=== PATIENT | female | born 1955 | race Caucasian/White ===

== ENCOUNTER 2017-01-05 17:52 | Emergency (ER) | payer MEDICARE, OTHER ==
[2017-01-05 18:47] VITALS: BP 126/64; PULSE 100; TEMP 97.9; BMI 27.4
--- NOTE | 2017-01-05 18:57 | PDOC ---
History of Present Illness - General Chief Complaint: Injury Stated Complaint: LEFT ARM PAIN Time Seen by Provider: 01/05/17 18:54 History Source: Patient Exam Limitations: No Limitations - History of Present Illness Initial Comments: CHIEF COMPLAINT: 61 y/o afebrile female with PMH DM c/o left shoulder and arm pain x 22 days. HISTORY OF PRESENT ILLNESS: The patient states she fell onto her left side 22 days ago while in the [place]. She came home, iced it, took Motrin and hoped it would get better. She states it was very swollen and painful but started to get better so she decided not to get checked out. She states both her left shoulder and left wrist started hurting again a few days ago. She denies numbness/tingling in affected extremity, f/c, redness and streaking to affected extremity. Vital signs on arrival are within normal limits. REVIEW OF SYSTEMS: GENERAL/CONSTITUTIONAL: No fever/chills. No weakness. No weight change. MUSCULOSKELETAL: +left shoulder and wrist pain. No neck or back pain. SKIN: No rash or easy bruising. NEUROLOGIC: No headache, vertigo, loss of consciousness, or loss of sensation. PHYSICAL EXAM: VITAL_SIGNS: within normal limits GENERAL_APPEARANCE: alert, cooperative, no obvious discomfort. MENTAL_STATUS: speech clear, oriented X 3, responds appropriately to questions. NEURO: motor intact and sensory intact in injured extremity. EXTREMITIES: Pain with palpation of left AC joint and left wrist at snuffbox. Mild swelling to left wrist joint. No left clavicular deformities, crepitus or tenting. Patient has difficulty abducting left arm > 90 degrees. 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 No erythema, warmth or streaking to affected extremity. SKIN: warm, dry, good color. Past History - Past Medical History Allergies/Adverse Reactions: Allergies Allergy/AdvReac Type Severity Reaction Status Date / Time canagliflozin [From Invokana] Allergy Severe Swelling Verified 01/05/17 18:44 Home Medications: Ambulatory Orders Glimepiride [Amaryl -] 1 mg PO DAILY 01/05/17 Metformin HCl [Metformin HCl ER] 1,000 mg PO ASDIR 01/05/17 Other medical history: denies - Immunization History Immunization Up to Date: Yes - Psycho/Social/Smoking Cessation Hx Suicidal Ideation: No Smoking History: Current every day smoker Number of Cigarettes Smoked Daily: 20 Information on smoking cessation initiated: No Hx Alcohol Use: No Drug/Substance Use Hx: No *Physical Exam - Vital Signs Last Vital Signs Temp Pulse Resp BP Pulse Ox 97.9 F 100 H 18 126/64 100 01/05/17 18:44 01/05/17 18:44 01/05/17 18:44 01/05/17 18:44 01/05/17 18:44 Medical Decision Making - Medical Decision Making A/P: 61 y/o female with 3 weeks of left shoulder and wrist pain s/p fall. Plan is as follows: 1. Left shoulder xray 2. Left wrist xray 3. Sling Left shoulder xray IMPRESSION: (wet read) No acute fracture Left wrist xray IMPRESSION: (wet read) Non displaced, already healing fracture of left distal radius. Will give wrist splint and sling. Informed the patient the wrist already started healing so she should f/u with Ortho as soon as possible. Suggested she continue motrin for pain, follow RICE instructions and call Dr. Young on Sunday. Pt instructed to return to the ER with any worsening or concerning symptoms. The patient verbalizes understanding of all instructions, has no further questions and is awaiting discharge. *DC/Admit/Observation/Transfer Diagnosis at time of Disposition: Rotator cuff injury Qualifiers: Encounter type: initial encounter Laterality: left Qualified Code(s): S46.002A - Unspecified injury of muscle(s) and tendon(s) of the rotator cuff of left shoulder, initial encounter Distal radius fracture, left Qualifiers: Encounter type: initial encounter Fracture type: closed Fracture morphology: unspecified fracture morphology Qualified Code(s): S52.502A - Unspecified fracture of the lower end of left radius, initial encounter for closed fracture - Discharge Dispostion Disposition: HOME Condition at time of disposition: Good - Referrals Referrals: Pramod Young MD [Staff Physician] - (Call on Sunday ) - Patient Instructions Printed Discharge Instructions: How to Use a Sling, How To Perform RICE (Rest, Ice, Compress, Elevate), DI for Rotator Cuff Injury, DI for Distal Radius Fracture Additional Instructions: Discharge Instructions: -Use sling for comfort -Follow RICE instructions and continue taking Motrin for pain -Use wrist splint for comfort -Call Dr. Young on Sunday to schedule follow up appointment -Return to the ER with any worsening or concerning symptoms.
[2017-01-05] MEDS ORDERED: IBUPROFEN 600 MG TABLET (FP) PO ONE ×2 (19:53→19:55)
== END 2017-01-05 19:59 | disposition home or self-care (01) ==
LOC: JERFT 17:52
PROC: 2W3DX1Z Immobilization of Left Lower Arm using Splint (ICD-10-PCS; principal; 2017-01-05)
DX: S52.502A Unspecified fracture of the lower end of left radius, initial encounter for closed fracture (principal); S46.002A Unspecified injury of muscle(s) and tendon(s) of the rotator cuff of left shoulder, initial encounter; W19.XXXA Unspecified fall, initial encounter; Y93.89 Activity, other specified; Y92.89 Other specified places as the place of occurrence of the external cause; E11.9 Type 2 diabetes mellitus without complications; Z79.84 Long term (current) use of oral hypoglycemic drugs
CPT/HCPCS: 29125; 73030-TC-LT; 73110-TC-LT; 73130-TC-LT; 99281-25

== ENCOUNTER 2018-05-20 09:09 | Inpatient (IN) | payer MEDICARE, OTHER ==
--- NOTE | 2018-05-20 09:28 | PDOC ---
Attending Attestation - Resident Resident Name: [email or web address] - ED Attending Attestation I have performed the following: I have examined & evaluated the patient, The case was reviewed & discussed with the resident, I agree w/resident's findings & plan, Exceptions are as noted - HPI HPI: 05/20/18 09:37 62y F hx of COPD,DM, presents with sob. Patient endorses 2 days of diarrhea that has since resolved she endorses nasal congestion and cough productive of whitish sputum over the past 4 days she endorses mild dyspnea on exertion without associated fevers, chest pain, hemoptysis, leg swelling, back pain. Patient endorses some mild epigastric pain and nausea without any vomiting. No associated orthopnea. +sick contacts +chronic smoking PMD:Dr. Lr - Physicial Exam PE: 05/20/18 10:29 GENERAL: The patient is awake, alert, and fully oriented, Nontoxic - in no acute distress. HEAD: Normocephalic, atraumatic. EYES: extraocular movements intact, sclera anicteric, conjunctiva clear. ENT: Normal voice, Moist mucous membranes. NECK: Normal range of motion, supple, no jvd LUNGS: diffuse wheezing bilaterally, no respiratory distress, speaking complete sentences HEART: Regular rate and rhythm, normal S1 and S2 without murmur, rub or gallop. ABDOMEN: Soft, nontender, normoactive bowel sounds. No guarding, no rebound. . No CVA tenderness EXTREMITIES: Normal range of motion, trace edema. NEUROLOGICAL: No facial assymetry, Normal speech, PSYCH: Normal mood, normal affect. SKIN: Warm, Dry, normal turgor, - Medical Decision Making 05/20/18 10:30 Suspect COPD exacerbation, consider PE however patient has no other risk factors she also has diffusely wheezy lung Will treat the patient with steroids, DuoNeb times we'll obtain chest x-ray to rule out pneumonia Oxygenation is noted to be 91-92% on room air - clear what her baseline is will check with her PMD Will reassess 05/20/18 12:07 The patient's blood work was reviewed the patient is persistent tachycardic and hypoxic consider possible PE 05/20/18 15:07 cta neg for pe will admti for further management of copd Heart Score/ECG Review - ECG Impressions Comment:: 05/20/18 12:07 Twelve-lead EKG was performed and reviewed by me. There is normal sinus rhythm with a normal rate. rate of [address] changes suggestive of acute ischemia
[2018-05-20] MEDS ORDERED: ALBUTEROL SO4 2.5/IPRATROPIUM 0.5 INH SOL 3 ML VIAL.NEB. NEB ONE ×5 (09:36→11:53)
[2018-05-20] MEDS ORDERED: FAMOTIDINE 20 MG/50 ML IVPB 20 MG/50 ML MG IVPB ONE ×2 (09:39→10:01)
[2018-05-20] MEDS ORDERED: predniSONE 20 MG TABLET (UD) PO ONE (09:39)
--- NOTE | 2018-05-20 09:49 | PDOC ---
History of Present Illness - General Chief Complaint: Weakness Stated Complaint: Weakness Time Seen by Provider: 05/20/18 09:21 History Source: Patient Exam Limitations: No Limitations - History of Present Illness Initial Comments: 05/20/18 09:43 Patient is 62F with history of DM and COPD here today complaining of 5 days of URI symptoms. Patient endorses three days of diarrhea during initial aspect of illness, but that resolved. Patient endorses cough, chills, nausea, gagging. Patient endorses shortness of breath, worse with exertion. Denies chest pain. Denies leg swelling, prior blood clots. Patient is active smoker. Patient has + sick contact two days before illness. Past History - Past Medical History Allergies/Adverse Reactions: Allergies Allergy/AdvReac Type Severity Reaction Status Date / Time canagliflozin [From Invokana] Allergy Severe Swelling Verified 05/20/18 09:22 Home Medications: Ambulatory Orders Glimepiride [Amaryl -] 1 mg PO DAILY 01/05/17 Metformin HCl [Metformin HCl ER] 1,000 mg PO ASDIR 01/05/17 COPD: Yes Diabetes: Yes - Immunization History Immunization Up to Date: Yes - Suicide/Smoking/Psychosocial Hx Smoking History: Current every day smoker Number of Cigarettes Smoked Daily: 10 Information on smoking cessation initiated: No Hx Alcohol Use: No Drug/Substance Use Hx: No Review of Systems - Review of Systems Comments:: 05/20/18 09:54 GENERAL/CONSTITUTIONAL: No fever +chills. No weakness. HEAD, EYES, EARS, NOSE AND THROAT: No change in vision. No ear pain or discharge. No sore throat. CARDIOVASCULAR: No chest pain +shortness of breath RESPIRATORY:+cough, +wheezing, no hemoptysis. GASTROINTESTINAL: +nausea, no vomiting, +diarrhea GENITOURINARY: No dysuria, frequency, or change in urination. MUSCULOSKELETAL: +b/l shoulder pain, chronic. No neck or back pain. SKIN: No rash NEUROLOGIC: No headache, vertigo, loss of consciousness, or change in strength/ sensation. ENDOCRINE: No increased thirst. No abnormal weight change HEMATOLOGIC/LYMPHATIC: No anemia, easy bleeding, or history of blood clots. ALLERGIC/IMMUNOLOGIC: No hives or skin allergy. *Physical Exam - Vital Signs Last Vital Signs Temp Pulse Resp BP Pulse Ox 97.7 F 100 H 20 131/67 91 L 05/20/18 09:14 05/20/18 09:14 05/20/18 09:14 05/20/18 09:14 05/20/18 09:14 - Physical Exam Comments: 05/20/18 09:55 GENERAL: Awake, alert, and fully oriented, in no acute distress HEAD: No signs of trauma, normocephalic, atraumatic EYES: PERRLA, EOMI, sclera anicteric, conjunctiva clear ENT: Auricles normal inspection, hearing grossly normal, nares patent, oropharynx clear without exudates. Moist mucosa NECK: Normal ROM, supple, no lymphadenopathy, JVD, or masses LUNGS: No distress, speaks full sentences, expiratory wheezes in all lung ortiz HEART: Regular rate and rhythm, normal S1 and S2, no murmurs, rubs or gallops, peripheral pulses normal and equal bilaterally. ABDOMEN: Soft, nontender, normoactive bowel sounds. No guarding, no rebound. No masses EXTREMITIES: Normal inspection, Normal range of motion, no edema. No clubbing or cyanosis. NEUROLOGICAL: Cranial nerves II through XII grossly intact. Normal speech, normal gait, no focal sensorimotor deficits SKIN: Warm, Dry, normal turgor, no rashes or lesions noted. Moderate Sedation - Procedure Monitoring Vital Signs: Procedure Monitoring Vital Signs Temperature 97.7 F 05/20/18 09:14 Pulse Rate 100 H 05/20/18 09:14 Respiratory Rate 20 05/20/18 09:14 Blood Pressure 131/67 05/20/18 09:14 O2 Sat by Pulse Oximetry (%) 91 L 05/20/18 09:14 ED Treatment Course - LABORATORY CBC & Chemistry Diagram: 05/20/18 09:55 05/20/18 09:55 - RADIOLOGY Radiology Studies Ordered: Category Date Time Status CHEST PA & LAT [RAD] Stat Radiology 05/20/18 09:34 Ordered Medical Decision Making - Medical Decision Making 05/20/18 09:55 Patient is 62F here today with shortness of breath. Vitals notable for HR of 100 , spO2 of 91% on room air. Unknown baseline. DDx includes, but is not limited to : COPD exacerbation, viral uri, pneumonia, acs. Will evaluate with cardiac labs , ekg, cxr. Will treat with pepcid, duonebs, prednisone. PE considered, do not believe likely given history and PE. 05/20/18 10:48 EKG shows normal sinus rhythm with rate of 95. No st elevations/depressions. Normal axis. Normal intervals. No significant t wave abnormalities. CBC normal. CMP normal. Mg slightly low. Patient still wheezing after nebs, sp02 improved to 94%. Still reporting shortness of breath. 05/20/18 12:57 Patient reassessed, tachycardic to 110s, hypoxic to 89%. Believe COPD is most likely, but tachycardia is not sufficiently explained at this time. Will do chest cta to rule out pe and pneumonia. Given tylenol for possible fever. Will admit if workup negative for copd exacerbation and hypoxia. 05/20/18 14:37 Patient has remained hypoxic despite steroids, mag and duonebs. Will admit for copd exacerbation. CTA negative. 05/20/18 15:17 D/w Dr Lr. Accepted admission to med/surg. *DC/Admit/Observation/Transfer Diagnosis at time of Disposition: COPD exacerbation - Discharge Dispostion Disposition: HOME Condition at time of disposition: Good Decision to Admit order: Yes - Referrals Referrals: Jen Lr MD [Primary Care Provider] - - Patient Instructions - Post Discharge Activity
[2018-05-20] MEDS ORDERED: predniSONE 20 MG TABLET (UD) ONE ×2 (10:01→10:02)
[2018-05-20 10:04] LABS: VENOUS PC02 46.6 mmHg (38-52); VENOUS PH 7.42 (7.32-7.42); VENOUS PO2 35.8 mmHg (28-48)
[2018-05-20 10:05] LABS: EOS % 0.2 % (0-4.5); HEMATOCRIT 45.2 % (32.4-45.2); HEMOGLOBIN 14.6 GM/dL (10.7-15.3); LYMPH % 41.6 % (8-40); MCH 28.4 pg (25.7-33.7); MCHC 32.3 g/dl (32.0-36.0); MEAN PLT VOLUME 7.1 fl (7.5-11.1); MONO % 11.5 % (3.8-10.2); NEUT % 45.7 % (42.8-82.8); PLATELET COUNT 246 K/MM3 (134-434); RBC 5.13 M/mm3 (3.60-5.2); RDW 13.5 % (11.6-15.6); WHITE BLOOD COUNT 6.8 K/mm3 (4.0-10.0)
[2018-05-20 10:16] LABS: INR 1.1 (0.83-1.09)
[2018-05-20 10:45] LABS: ALBUMIN 3.4 g/dl (3.4-5.0); ALK PHOS 130 U/L (45-117); ANION GAP 9 MMOL/L (8-16); BILIRUBIN,TOTAL 0.5 mg/dL (0.2-1); BLOOD UREA NITROGEN 10 mg/dL (7-18); CALCIUM 8.7 mg/dL (8.5-10.1); CHLORIDE 100 mmol/L (98-107); CO2 27 mmol/L (21-32); CREATININE 0.5 mg/dL (0.55-1.3); GLUCOSE,RANDOM 178 mg/dL (74-106); MAGNESIUM 1.4 mg/dL (1.8-2.4); POTASSIUM 3.9 mmol/L (3.5-5.1); SGOT/AST 24 U/L (15-37); SGPT/ALT 38 U/L (13-61); SODIUM 135 mmol/L (136-145); TOT PROT 7.3 g/dl (6.4-8.2)
[2018-05-20] MEDS ORDERED: SODIUM CHLORIDE 1,000 ML IV STA (11:49)
[2018-05-20] MEDS ORDERED: ACETAMINOPHEN 325 MG TABLET (FP) PO ONE (11:50)
[2018-05-20] MEDS ORDERED: ACETAMINOPHEN 325 MG TABLET (FP) ONE (11:53)
[2018-05-20] MEDS ORDERED: MAGNESIUM 1GM/D5W - 1 GM/100 ML IVPB IVPB ONE (11:54)
--- NOTE | 2018-05-20 12:16 | EKG ---
Test Reason : Blood Pressure : / mmHG Vent. Rate : 095 BPM Atrial Rate : 095 BPM P-R Int : 164 ms QRS Dur : 072 ms QT Int : 366 ms P-R-T Axes : 071 075 041 degrees QTc Int : 459 ms NORMAL SINUS RHYTHM RIGHT ATRIAL ENLARGEMENT BORDERLINE ECG WHEN COMPARED WITH ECG OF 23-JUN-2004 18:14, NO SIGNIFICANT CHANGE WAS FOUND Confirmed by FAISAL HENDRIX MD ([id number]) on 05/20/2018 12:16:15 PM Referred By: Confirmed By:FAISAL HENDRIX MD
[2018-05-20] MEDS ORDERED: ALBUTEROL SO4 2.5/IPRATROPIUM 0.5 INH SOL 3 ML VIAL.NEB. NEB PRN (18:12)
[2018-05-20] MEDS ORDERED: ACETAMINOPHEN 500 MG TABLET (FP) PO PRN (18:19)
[2018-05-20 18:42] VITALS: BMI 27.8
[2018-05-20] MEDS: DEXTROSE 5%-0.45% SALINE 1,000 ML IV SCH (19:01)
[2018-05-20] MEDS: BUDESONIDE/FORMETEROL FUMARATE 80/4.5 mcg INHALER IH SCH (19:01)
[2018-05-20] MEDS: PANTOPRAZOLE 40 MG TABLET (FP) PO SCH (19:01)
[2018-05-20] MEDS: ALBUTEROL SO4 2.5/IPRATROPIUM 0.5 INH SOL 3 ML VIAL.NEB. NEB SCH (20:19)
[2018-05-20] MEDS ORDERED: PT OWN MED DRAWER 7, Y5N ONE (22:28)
[2018-05-20] MEDS: ATORVASTATIN CA 40 MG TABLET (FP) PO SCH (22:31)
[2018-05-20] MEDS: MAGNESIUM OXIDE 400 MG TABLET (FP) PO SCH (22:31)
[2018-05-20] MEDS: methylPREDNISolone NA SUCC 40 MG/1 ML VIAL IVPUSH SCH (22:32)
[2018-05-20] MEDS: DOCUSATE SODIUM 100 MG CAPSULE (FP) PO SCH (22:32)
[2018-05-20] MEDS: INSULIN SLIDING SCALE (NOVOLOG) 1 VIAL SQ SCH (22:44)
[2018-05-21] MEDS: methylPREDNISolone NA SUCC 40 MG/1 ML VIAL IVPUSH SCH ×4 (02:22→21:43)
[2018-05-21] MEDS: INSULIN SLIDING SCALE (NOVOLOG) 1 VIAL SQ SCH ×4 (06:24→21:57)
[2018-05-21] MEDS: ALBUTEROL SO4 2.5/IPRATROPIUM 0.5 INH SOL 3 ML VIAL.NEB. NEB SCH ×4 (07:25→20:10)
[2018-05-21 08:20] LABS: HEMATOCRIT 43.9 % (32.4-45.2); MCH 28.6 pg (25.7-33.7); MCHC 31.9 g/dl (32.0-36.0); MEAN CELL VOLUME 89.4 fl (80-96); MEAN PLT VOLUME 7.5 fl (7.5-11.1); PLATELET COUNT 255 K/MM3 (134-434); RDW 13.4 % (11.6-15.6); WHITE BLOOD COUNT 5.3 K/mm3 (4.0-10.0)
[2018-05-21 09:11] LABS: ANION GAP 9 MMOL/L (8-16); BLOOD UREA NITROGEN 17 mg/dL (7-18); CALCIUM 8.8 mg/dL (8.5-10.1); CHLORIDE 102 mmol/L (98-107); CHOLESTEROL 138 mg/dL (50-200); CO2 25 mmol/L (21-32); CREATININE 0.6 mg/dL (0.55-1.3); HDL CHOLESTEROL 46 mg/dL (40-60); MAGNESIUM 2.4 mg/dL (1.8-2.4); SODIUM 136 mmol/L (136-145); TRIGLYCERIDES 45 mg/dL (0-150)
[2018-05-21 09:14] LABS: GLUCOSE,RANDOM 308 mg/dL (74-106)
[2018-05-21] MEDS: PANTOPRAZOLE 40 MG TABLET (FP) PO SCH (09:54)
[2018-05-21] MEDS: LISINOPRIL 5 MG TABLET (FP) PO SCH (09:54)
[2018-05-21] MEDS: MAGNESIUM OXIDE 400 MG TABLET (FP) PO SCH ×2 (09:54→21:44)
[2018-05-21] MEDS: DOCUSATE SODIUM 100 MG CAPSULE (FP) PO SCH ×2 (09:54→21:43)
[2018-05-21] MEDS: BUDESONIDE/FORMETEROL FUMARATE 80/4.5 mcg INHALER IH SCH ×2 (09:58→21:44)
--- NOTE | 2018-05-21 17:00 | HP ---
Admitting History and Physical - Past Medical History ...: No - Smoking History Smoking history: Current every day smoker Have you smoked in the past 12 months: Yes Aproximately how many cigarettes per day: 10 - Alcohol/Substance Use Hx Alcohol Use: No <ZacDiana - Last Filed: 05/21/18 17:00> - Admission Chief Complaint: cant breath History of Present Illness: Patient is 62F with history of DM and COPD here today complaining of 5 days of URI symptoms. Patient endorses three days of diarrhea during initial aspect of illness, but that resolved. Patient endorses cough, chills, nausea, gagging. Patient endorses shortness of breath, worse with exertion. Denies chest pain. Denies leg swelling, prior blood clots. Patient is active smoker. Patient has + sick contact two days before illness. History Source: Patient, Medical Record Limitations to Obtaining History: No Limitations - Past Medical History Pulmonary: Yes: COPD, Other (current smoker) Reproductive: Yes: Postmenopausal Endocrine: Yes: Diabetes Mellitus (12 yrs) - Smoking History Smoking history: Current every day smoker Have you smoked in the past 12 months: Yes - Alcohol/Substance Use Hx Alcohol Use: No History of Substance Use: reports: None - Social History Usual Living Arrangement: Yes: Alone ADL: Independent History of Recent Travel: No <Jen Lr I - Last Filed: 05/22/18 13:09> Home Medications <Diana Frank - Last Filed: 05/21/18 17:00> <Jen Lr I - Last Filed: 05/22/18 13:09> - Allergies Allergies/Adverse Reactions: Allergies Allergy/AdvReac Type Severity Reaction Status Date / Time canagliflozin [From Invokana] Allergy Severe Swelling Verified 05/20/18 09:22 - Home Medications Home Medications: Ambulatory Orders Glimepiride [Amaryl -] 1 mg PO DAILY 01/05/17 Metformin HCl [Metformin HCl ER] 1,000 mg PO ASDIR 01/05/17 Review of Systems - Review of Systems Constitutional: denies: Chills, Fever, Night Sweats Eyes: reports: No Symptoms HENT: reports: No Symptoms Neck: reports: No Symptoms Cardiovascular: reports: Shortness of Breath Respiratory: reports: Cough, Exercise Intolerance, Orthopnea, SOB, SOB on Exertion Gastrointestinal: reports: No Symptoms Genitourinary: reports: No Symptoms Breasts: reports: No Symptoms Reported Musculoskeletal: reports: No Symptoms Integumentary: reports: No Symptoms Neurological: reports: No Symptoms Endocrine: reports: Increased Thirst Hematology/Lymphatic: reports: No Symptoms Psychiatric: reports: No Symptoms <Jen Lr I - Last Filed: 05/22/18 13:09> Physical Examination Vital Signs: Vital Signs Temperature 98.2 F 05/21/18 13:58 Pulse Rate 86 05/21/18 13:58 Respiratory Rate 18 05/21/18 13:58 Blood Pressure 114/74 05/21/18 13:58 O2 Sat by Pulse Oximetry (%) 96 05/21/18 09:00 Labs: CBC, ANNE-MARIE 05/21/18 06:23 05/21/18 06:23 <Diana Frank - Last Filed: 05/21/18 17:00> Vital Signs: Vital Signs Temperature 98.1 F 05/22/18 10:00 Pulse Rate 91 H 05/22/18 10:00 Respiratory Rate 18 05/22/18 10:00 Blood Pressure 134/76 05/22/18 10:00 O2 Sat by Pulse Oximetry (%) 96 05/21/18 21:00 Constitutional: Yes: Well Nourished, No Distress, Calm Eyes: Yes: Conjunctiva Clear, EOM Intact HENT: Yes: Atraumatic, Normocephalic Neck: Yes: Supple, Trachea Midline Cardiovascular: Yes: Regular Rate and Rhythm Respiratory: Yes: Diminished, Poor Air Entry, SOB, SOB on Exertion Gastrointestinal: Yes: Normal Bowel Sounds, Soft ...Rectal Exam: Yes: Deferred Renal/: Yes: WNL Breast(s): Yes: WNL Musculoskeletal: Yes: WNL Extremities: Yes: WNL Edema: No Peripheral Pulses WNL: Yes Integumentary: Yes: WNL Neurological: Yes: Alert, Oriented ...Motor Strength: WNL Psychiatric: Yes: Alert, Oriented Labs: CBC, BMP 05/21/18 06:23 05/21/18 06:23 <Jen Lr I - Last Filed: 05/22/18 13:09> Problem List - Problems (1) COPD exacerbation Code(s): J44.1 - CHRONIC OBSTRUCTIVE PULMONARY DISEASE W (ACUTE) EXACERBATION (2) Diabetes mellitus Code(s): E11.9 - TYPE 2 DIABETES MELLITUS WITHOUT COMPLICATIONS <Jen Lr I - Last Filed: 05/22/18 13:09>
[2018-05-21] MEDS: POLYETHYLENE GLYCOL 3350 119 GM BTL PO SCH (17:24)
[2018-05-21] MEDS: DEXTROSE 5%-0.45% SALINE 1,000 ML IV SCH (17:25)
[2018-05-21] MEDS: ATORVASTATIN CA 40 MG TABLET (FP) PO SCH (21:44)
[2018-05-22] MEDS: methylPREDNISolone NA SUCC 40 MG/1 ML VIAL IVPUSH SCH ×4 (02:52→22:07)
[2018-05-22] MEDS: INSULIN SLIDING SCALE (NOVOLOG) 1 VIAL SQ SCH ×4 (06:12→22:07)
[2018-05-22] MEDS: ALBUTEROL SO4 2.5/IPRATROPIUM 0.5 INH SOL 3 ML VIAL.NEB. NEB SCH ×4 (07:35→20:28)
[2018-05-22] MEDS: LISINOPRIL 5 MG TABLET (FP) PO SCH (10:00)
[2018-05-22] MEDS: BUDESONIDE/FORMETEROL FUMARATE 80/4.5 mcg INHALER IH SCH ×2 (10:00→22:09)
[2018-05-22] MEDS: DOCUSATE SODIUM 100 MG CAPSULE (FP) PO SCH ×2 (10:00→22:07)
[2018-05-22] MEDS: MAGNESIUM OXIDE 400 MG TABLET (FP) PO SCH ×2 (10:00→22:07)
[2018-05-22] MEDS: POLYETHYLENE GLYCOL 3350 119 GM BTL PO SCH (10:00)
[2018-05-22] MEDS: PANTOPRAZOLE 40 MG TABLET (FP) PO SCH (10:00)
[2018-05-22] MEDS ORDERED: sitaGLIPtin PHOSPHATE 100 MG TABLET (FP) PO SCH (12:55)
--- NOTE | 2018-05-22 13:03 | PN ---
Progress Note (short form) - Note Progress Note: seen and examined in room ambulating remains dyspneic admits current smoker -- I have not smoked in 4 days Vital Signs Period Temp Pulse Resp BP Sys/Soriano Pulse Ox Last 24 Hr 98 F-98.7 F 86-98 17-24 114-142/57-76 96 neck supple heart s1/s2 lungs decreased BS throughout / coarse wheezing bilat / coughing when taking deep breaths abd soft no tender CBC, BMP 05/21/18 06:23 05/21/18 06:23 discussed diet adherance for DM extensively BS all remain elevated monitor reviewed avg BS as out patient 200's Active Medications Acetaminophen (Tylenol -) 500 mg PO Q6H PRN PRN Reason: PAIN LEVEL 1-5 Albuterol/Ipratropium (Duoneb -) 1 amp NEB RQID [facility] Last Admin: 05/22/18 12:39 Dose: 1 amp Albuterol/Ipratropium (Duoneb -) 1 amp NEB Q4H PRN PRN Reason: SHORTNESS OF BREATH Atorvastatin Calcium (Lipitor -) 40 mg PO HS [facility] Last Admin: 05/21/18 21:44 Dose: 40 mg Budesonide/Formoterol Fumarate (Symbicort 80/4.5mcg -) 2 puff IH BID [facility] Last Admin: 05/22/18 10:00 Dose: 2 puff Docusate Sodium (Colace -) 200 mg PO BID [facility] Last Admin: 05/22/18 10:00 Dose: 200 mg Insulin Aspart (Novolog Vial Sliding Scale -) 1 vial SQ ACHS [facility]; Protocol Last Admin: 05/22/18 12:10 Dose: 12 unit Lisinopril (Prinivil) 5 mg PO DAILY [facility] Last Admin: 05/22/18 10:00 Dose: 5 mg Magnesium Oxide (Mag-Ox -) 400 mg PO BID [facility] Last Admin: 05/22/18 10:00 Dose: 400 mg Metformin HCl (Glucophage -) 1,000 mg PO BID@0700,1630 [facility] Methylprednisolone Sodium Succinate (Solu-Medrol -) 60 mg IVPUSH Q6H-IV [facility] Last Admin: 05/22/18 09:59 Dose: 60 mg Nicotine (Nicoderm Patch -) 21 mg TD DAILY [facility] Pantoprazole Sodium (Protonix -) 40 mg PO DAILY [facility] Last Admin: 05/22/18 10:00 Dose: 40 mg Polyethylene Glycol (Miralax (For Daily Use) -) 17 gm PO DAILY [facility] Last Admin: 05/22/18 10:00 Dose: 17 gm Sitagliptin Phosphate (Januvia -) 100 mg PO DAILY@0700 [facility] # COPD exacebation D/C smoking Inh steroids / LABA / rescue inhaler IV steroids PPI -- will not taper steroids at this point #DM A1c >10 - uncontrolled (diabetic for 12 yrs) resume metformin add Januvia continue Insulin diet education statins / ACEi / asa
[2018-05-22] MEDS ORDERED: PT OWN MED DRAWER 7, Y5N ONE (14:24)
[2018-05-22] MEDS: NICOTINE 21 MG/24 HOURS TOPICAL PATCH TD SCH (14:34)
[2018-05-22] MEDS: metFORMIN HCL 500 MG TABLET (FP) PO SCH (17:29)
[2018-05-22] MEDS: ATORVASTATIN CA 40 MG TABLET (FP) PO SCH (22:07)
[2018-05-23] MEDS: methylPREDNISolone NA SUCC 40 MG/1 ML VIAL IVPUSH SCH ×4 (02:01→21:35)
[2018-05-23] MEDS: metFORMIN HCL 500 MG TABLET (FP) PO SCH ×2 (06:03→17:49)
[2018-05-23] MEDS: sitaGLIPtin PHOSPHATE 50 MG TABLET PO SCH (06:03)
[2018-05-23] MEDS: INSULIN SLIDING SCALE (NOVOLOG) 1 VIAL SQ SCH ×4 (06:03→21:36)
[2018-05-23] MEDS ORDERED: PT OWN MED DRAWER 7, Y5N ONE ×2 (06:46→11:05)
[2018-05-23] MEDS: ALBUTEROL SO4 2.5/IPRATROPIUM 0.5 INH SOL 3 ML VIAL.NEB. NEB SCH ×4 (07:15→20:03)
--- NOTE | 2018-05-23 09:27 | PN ---
Progress Note (short form) - Note Progress Note: 62 y/o female found sitting in bed. States that breathing is good. Reports abdominal bloating and no BM since Sunday. Denies coughing. Vital Signs Period Temp Pulse Resp BP Sys/Soriano Pulse Ox Last 24 Hr 97.6 F-98.2 F 87-105 18-20 120-181/60-78 96 CBC, BMP 05/21/18 06:23 05/21/18 06:23 HEENT- Normocephalic Neck- supple Lungs- CTAB Heart- S1/S2 Abd- Distended, NT Ext- No LE edema Active Medications Acetaminophen (Tylenol -) 500 mg PO Q6H PRN PRN Reason: PAIN LEVEL 1-5 Albuterol/Ipratropium (Duoneb -) 1 amp NEB RQID [facility] Last Admin: 05/22/18 20:28 Dose: 1 amp Albuterol/Ipratropium (Duoneb -) 1 amp NEB Q4H PRN PRN Reason: SHORTNESS OF BREATH Atorvastatin Calcium (Lipitor -) 40 mg PO HS [facility] Last Admin: 05/22/18 22:07 Dose: 40 mg Budesonide/Formoterol Fumarate (Symbicort 80/4.5mcg -) 2 puff IH BID [facility] Last Admin: 05/22/18 22:09 Dose: 2 puff Docusate Sodium (Colace -) 200 mg PO BID [facility] Last Admin: 05/22/18 22:07 Dose: 200 mg Insulin Aspart (Novolog Vial Sliding Scale -) [address] [facility]; Protocol Last Admin: 05/23/18 06:03 Dose: 8 unit Lisinopril (Prinivil) 5 mg PO DAILY [facility] Last Admin: 05/22/18 10:00 Dose: 5 mg Magnesium Citrate (Citroma -) 300 ml PO ONCE ONE Stop: 05/23/18 09:21 Magnesium Oxide (Mag-Ox -) 400 mg PO BID [facility] Last Admin: 05/22/18 22:07 Dose: 400 mg Metformin HCl (Glucophage -) 1,000 mg PO BID@0700,1630 [facility] Last Admin: 05/23/18 06:03 Dose: 1,000 mg Methylprednisolone Sodium Succinate (Solu-Medrol -) 60 mg IVPUSH Q6H-IV [facility] Last Admin: 05/23/18 02:01 Dose: 60 mg Nicotine (Nicoderm Patch -) 21 mg TD DAILY [facility] Last Admin: 05/22/18 14:34 Dose: 21 mg Pantoprazole Sodium (Protonix -) 40 mg PO DAILY [facility] Last Admin: 05/22/18 10:00 Dose: 40 mg Polyethylene Glycol (Miralax (For Daily Use) -) 17 gm PO DAILY [facility] Last Admin: 05/22/18 10:00 Dose: 17 gm Sitagliptin Phosphate (Januvia -) 100 mg PO DAILY@0700 [facility] Last Admin: 05/23/18 06:03 Dose: 100 mg # Constipation Citroma ordered Continue Colace and Miralax # COPD exacerbation Continue Nicotine Patch Smoking cessation discussed Inh steroids / IV steroids LABA / rescue inhaler #DM A1c >10 - uncontrolled (diabetic for 12 yrs) Metformin BID Cont Januvia Continue Novolog sliding scale Encourage diet compliance statins / DURGA / asa Problem List - Problems (1) COPD exacerbation Code(s): J44.1 - CHRONIC OBSTRUCTIVE PULMONARY DISEASE W (ACUTE) EXACERBATION (2) Diabetes mellitus Code(s): E11.9 - TYPE 2 DIABETES MELLITUS WITHOUT COMPLICATIONS
[2018-05-23] MEDS ORDERED: MAGNESIUM CITRATE 300 ML BOTTLE PO ONE (09:45)
[2018-05-23] MEDS: PANTOPRAZOLE 40 MG TABLET (FP) PO SCH (09:50)
[2018-05-23] MEDS: MAGNESIUM OXIDE 400 MG TABLET (FP) PO SCH ×2 (09:50→21:35)
[2018-05-23] MEDS: LISINOPRIL 5 MG TABLET (FP) PO SCH (09:50)
[2018-05-23] MEDS: ASPIRIN COATED 81 MG TABLET.EC PO SCH (09:50)
[2018-05-23] MEDS: DOCUSATE SODIUM 100 MG CAPSULE (FP) PO SCH ×2 (09:50→21:35)
[2018-05-23] MEDS: NICOTINE 21 MG/24 HOURS TOPICAL PATCH TD SCH (09:58)
[2018-05-23] MEDS: BUDESONIDE/FORMETEROL FUMARATE 80/4.5 mcg INHALER IH SCH ×2 (09:59→21:37)
[2018-05-23] MEDS: POLYETHYLENE GLYCOL 3350 119 GM BTL PO SCH (09:59)
[2018-05-23] MEDS: ATORVASTATIN CA 40 MG TABLET (FP) PO SCH (21:36)
[2018-05-24] MEDS: methylPREDNISolone NA SUCC 40 MG/1 ML VIAL IVPUSH SCH ×5 (01:58→21:09)
[2018-05-24] MEDS: INSULIN SLIDING SCALE (NOVOLOG) 1 VIAL SQ SCH ×4 (06:34→21:07)
[2018-05-24] MEDS: sitaGLIPtin PHOSPHATE 50 MG TABLET PO SCH (06:34)
[2018-05-24] MEDS: metFORMIN HCL 500 MG TABLET (FP) PO SCH ×2 (06:34→17:19)
[2018-05-24] MEDS: ALBUTEROL SO4 2.5/IPRATROPIUM 0.5 INH SOL 3 ML VIAL.NEB. NEB SCH ×4 (07:18→20:35)
[2018-05-24 08:18] LABS: BASO % 0.1 % (0-2.0); HEMOGLOBIN 13.7 GM/dL (10.7-15.3); MCH 28.4 pg (25.7-33.7); MCHC 31.9 g/dl (32.0-36.0); MEAN CELL VOLUME 89.2 fl (80-96); MEAN PLT VOLUME 7.6 fl (7.5-11.1); MONO % 4.7 % (3.8-10.2); NEUT % 81.2 % (42.8-82.8); PLATELET COUNT 353 K/MM3 (134-434); RBC 4.82 M/mm3 (3.60-5.2); RDW 13.2 % (11.6-15.6); WHITE BLOOD COUNT 10.5 K/mm3 (4.0-10.0)
[2018-05-24] MEDS ORDERED: PT OWN MED DRAWER 7, Y5N ONE ×4 (08:47→20:35)
[2018-05-24 09:05] LABS: ANION GAP 9 MMOL/L (8-16); BLOOD UREA NITROGEN 31 mg/dL (7-18); CHLORIDE 97 mmol/L (98-107); CO2 27 mmol/L (21-32); CREATININE 0.9 mg/dL (0.55-1.3); POTASSIUM 4.6 mmol/L (3.5-5.1); SODIUM 134 mmol/L (136-145)
[2018-05-24 10:06] LABS: GLUCOSE,RANDOM 399 mg/dL (74-106)
--- NOTE | 2018-05-24 10:11 | PN ---
Progress Note (short form) - Note Progress Note: 62 y/o female found lying in bed. Reports that she feels better due to BMs yesterday. Reports cough this am. Denies pain and SOB. Vital Signs Period Temp Pulse Resp BP Sys/Soriano Pulse Ox Last 24 Hr 97.5 F-98.4 F 92-106 20-20 123-137/62-78 98 CBC, BMP 05/24/18 07:30 05/24/18 07:30 HEENT- Normocephalic Neck- Supple Lungs- CTAB Heart- S1/S2 Abd- Soft, nt Ext- No LE edema Active Medications Acetaminophen (Tylenol -) 500 mg PO Q6H PRN PRN Reason: PAIN LEVEL 1-5 Albuterol/Ipratropium (Duoneb -) 1 amp NEB RQID [facility] Last Admin: 05/24/18 07:18 Dose: 1 amp Albuterol/Ipratropium (Duoneb -) 1 amp NEB Q4H PRN PRN Reason: SHORTNESS OF BREATH Aspirin (Ecotrin -) 81 mg PO DAILY [facility] Last Admin: 05/23/18 09:50 Dose: 81 mg Atorvastatin Calcium (Lipitor -) 40 mg PO HS [facility] Last Admin: 05/23/18 21:36 Dose: 40 mg Budesonide/Formoterol Fumarate (Symbicort 80/4.5mcg -) 2 puff IH BID [facility] Last Admin: 05/23/18 21:37 Dose: 2 puff Docusate Sodium (Colace -) 200 mg PO BID [facility] Last Admin: 05/23/18 21:35 Dose: 200 mg Insulin Aspart (Novolog Vial Sliding Scale -) 1 vial SQ ACHS [facility]; Protocol Last Admin: 05/24/18 06:34 Dose: 12 unit Lisinopril (Prinivil) 5 mg PO DAILY [facility] Last Admin: 05/23/18 09:50 Dose: 5 mg Magnesium Oxide (Mag-Ox -) 400 mg PO BID [facility] Last Admin: 05/23/18 21:35 Dose: 400 mg Metformin HCl (Glucophage -) 1,000 mg PO BID@0700,1630 [facility] Last Admin: 05/24/18 06:34 Dose: 1,000 mg Methylprednisolone Sodium Succinate (Solu-Medrol -) 40 mg IVPUSH Q6H-IV ZURI Nicotine (Nicoderm Patch -) 21 mg TD DAILY [facility] Last Admin: 05/23/18 09:58 Dose: 21 mg Pantoprazole Sodium (Protonix -) 40 mg PO DAILY [facility] Last Admin: 05/23/18 09:50 Dose: 40 mg Polyethylene Glycol (Miralax (For Daily Use) -) 17 gm PO DAILY [facility] Last Admin: 05/23/18 09:59 Dose: 17 gm Sitagliptin Phosphate (Januvia -) 100 mg PO DAILY@0700 [facility] Last Admin: 05/24/18 06:34 Dose: 100 mg # Elevated WBC ct Trend labs # Constipation Resolved with Citroma Continue Colace and Miralax # COPD exacerbation Continue Nicotine Patch Smoking cessation Inh steroids / IV steroids taper LABA / rescue inhaler #DM A1c >10 - uncontrolled (diabetic for 12 yrs) BG 399- taper steroids Metformin BID Cont Januvia Continue Novolog sliding scale statins / DURGA / asa Problem List - Problems (1) COPD exacerbation Code(s): J44.1 - CHRONIC OBSTRUCTIVE PULMONARY DISEASE W (ACUTE) EXACERBATION (2) Diabetes mellitus Code(s): E11.9 - TYPE 2 DIABETES MELLITUS WITHOUT COMPLICATIONS
[2018-05-24] MEDS ORDERED: methylPREDNISolone NA SUCC 125 MG/2 ML VIAL ONE (10:29)
[2018-05-24] MEDS: MAGNESIUM OXIDE 400 MG TABLET (FP) PO SCH ×2 (10:30→21:06)
[2018-05-24] MEDS: NICOTINE 21 MG/24 HOURS TOPICAL PATCH TD SCH (10:30)
[2018-05-24] MEDS: LISINOPRIL 5 MG TABLET (FP) PO SCH (10:30)
[2018-05-24] MEDS: ASPIRIN COATED 81 MG TABLET.EC PO SCH (10:30)
[2018-05-24] MEDS: DOCUSATE SODIUM 100 MG CAPSULE (FP) PO SCH ×2 (10:30→21:06)
[2018-05-24] MEDS: BUDESONIDE/FORMETEROL FUMARATE 80/4.5 mcg INHALER IH SCH ×2 (10:30→21:11)
[2018-05-24] MEDS: PANTOPRAZOLE 40 MG TABLET (FP) PO SCH (10:31)
[2018-05-24] MEDS: POLYETHYLENE GLYCOL 3350 119 GM BTL PO SCH (11:23)
[2018-05-24] MEDS: ATORVASTATIN CA 40 MG TABLET (FP) PO SCH (21:06)
[2018-05-25] MEDS: methylPREDNISolone NA SUCC 40 MG/1 ML VIAL IVPUSH SCH ×3 (02:51→21:04)
[2018-05-25] MEDS: metFORMIN HCL 500 MG TABLET (FP) PO SCH ×2 (06:02→17:01)
[2018-05-25] MEDS: INSULIN SLIDING SCALE (NOVOLOG) 1 VIAL SQ SCH ×4 (06:02→21:04)
[2018-05-25] MEDS: sitaGLIPtin PHOSPHATE 50 MG TABLET PO SCH (06:02)
[2018-05-25 07:13] LABS: BASO % 0.2 % (0-2.0); HEMATOCRIT 42.1 % (32.4-45.2); HEMOGLOBIN 14.4 GM/dL (10.7-15.3); MCHC 34.1 g/dl (32.0-36.0); MEAN CELL VOLUME 87.9 fl (80-96); MEAN PLT VOLUME 7.9 fl (7.5-11.1); MONO % 4.5 % (3.8-10.2); NEUT % 83.3 % (42.8-82.8); PLATELET COUNT 378 K/MM3 (134-434); RBC 4.79 M/mm3 (3.60-5.2); RDW 13.3 % (11.6-15.6); WHITE BLOOD COUNT 9.1 K/mm3 (4.0-10.0)
[2018-05-25] MEDS: ALBUTEROL SO4 2.5/IPRATROPIUM 0.5 INH SOL 3 ML VIAL.NEB. NEB SCH ×4 (07:40→20:43)
[2018-05-25 07:58] LABS: ANION GAP 10 MMOL/L (8-16); BLOOD UREA NITROGEN 27 mg/dL (7-18); CALCIUM 8.7 mg/dL (8.5-10.1); CHLORIDE 93 mmol/L (98-107); CO2 27 mmol/L (21-32); CREATININE 0.7 mg/dL (0.55-1.3); POTASSIUM 4.6 mmol/L (3.5-5.1); SODIUM 130 mmol/L (136-145)
[2018-05-25 08:48] LABS: GLUCOSE,RANDOM 400 mg/dL (74-106)
[2018-05-25] MEDS: ASPIRIN COATED 81 MG TABLET.EC PO SCH (09:46)
[2018-05-25] MEDS: MAGNESIUM OXIDE 400 MG TABLET (FP) PO SCH ×2 (09:46→21:04)
[2018-05-25] MEDS: NICOTINE 21 MG/24 HOURS TOPICAL PATCH TD SCH (09:46)
[2018-05-25] MEDS: DOCUSATE SODIUM 100 MG CAPSULE (FP) PO SCH ×2 (09:46→21:04)
[2018-05-25] MEDS: PANTOPRAZOLE 40 MG TABLET (FP) PO SCH (09:46)
[2018-05-25] MEDS: LISINOPRIL 5 MG TABLET (FP) PO SCH (09:46)
[2018-05-25] MEDS: BUDESONIDE/FORMETEROL FUMARATE 80/4.5 mcg INHALER IH SCH ×2 (09:48→21:03)
[2018-05-25] MEDS: POLYETHYLENE GLYCOL 3350 119 GM BTL PO SCH (09:50)
--- NOTE | 2018-05-25 15:04 | PN ---
Progress Note (short form) - Note Progress Note: seen and examined in room ambulating remains dyspneic only on excertion able to sleep overnight Vital Signs Period Temp Pulse Resp BP Sys/Soriano Pulse Ox Last 24 Hr 98 F-98.7 F 86-98 17-24 114-142/57-76 96 neck supple heart s1/s2 lungs decreased BS throughout / right sided wheezing abd soft no tender CBC, BMP 05/25/18 06:30 05/25/18 06:30 CBC, BMP 05/21/18 06:23 05/21/18 06:23 discussed diet adherance for DM extensively BS all remain elevated monitor reviewed avg BS as out patient 200's Active Medications Acetaminophen (Tylenol -) 500 mg PO Q6H PRN PRN Reason: PAIN LEVEL 1-5 Albuterol/Ipratropium (Duoneb -) 1 amp NEB RQID [facility] Last Admin: 05/22/18 12:39 Dose: 1 amp Albuterol/Ipratropium (Duoneb -) 1 amp NEB Q4H PRN PRN Reason: SHORTNESS OF BREATH Atorvastatin Calcium (Lipitor -) 40 mg PO HS [facility] Last Admin: 05/21/18 21:44 Dose: 40 mg Budesonide/Formoterol Fumarate (Symbicort 80/4.5mcg -) 2 puff IH BID [facility] Last Admin: 05/22/18 10:00 Dose: 2 puff Docusate Sodium (Colace -) 200 mg PO BID [facility] Last Admin: 05/22/18 10:00 Dose: 200 mg Insulin Aspart (Novolog Vial Sliding Scale -) 1 vial SQ ACHS [facility]; Protocol Last Admin: 05/22/18 12:10 Dose: 12 unit Lisinopril (Prinivil) 5 mg PO DAILY [facility] Last Admin: 05/22/18 10:00 Dose: 5 mg Magnesium Oxide (Mag-Ox -) 400 mg PO BID [facility] Last Admin: 05/22/18 10:00 Dose: 400 mg Metformin HCl (Glucophage -) 1,000 mg PO BID@0700,1630 [facility] Methylprednisolone Sodium Succinate (Solu-Medrol -) 60 mg IVPUSH Q6H-IV [facility] Last Admin: 05/22/18 09:59 Dose: 60 mg Nicotine (Nicoderm Patch -) 21 mg TD DAILY [facility] Pantoprazole Sodium (Protonix -) 40 mg PO DAILY [facility] Last Admin: 05/22/18 10:00 Dose: 40 mg Polyethylene Glycol (Miralax (For Daily Use) -) 17 gm PO DAILY [facility] Last Admin: 05/22/18 10:00 Dose: 17 gm Sitagliptin Phosphate (Januvia -) 100 mg PO DAILY@0700 [facility] # COPD exacebation D/C smoking Inh steroids / LABA / rescue inhaler taper steroids -- if remains stable will change to PO PPi #DM A1c >10 - uncontrolled (diabetic for 12 yrs) resume metformin add Januvia continue Insulin diet education statins / ACEi / asa discussed diet adherance for DM extensively BS all remain elevated monitor reviewed avg BS as out patient 200's Problem List - Problems (1) COPD exacerbation Code(s): J44.1 - CHRONIC OBSTRUCTIVE PULMONARY DISEASE W (ACUTE) EXACERBATION (2) Diabetes mellitus Code(s): E11.9 - TYPE 2 DIABETES MELLITUS WITHOUT COMPLICATIONS
[2018-05-25] MEDS ORDERED: PT OWN MED DRAWER 7, Y5N ONE (20:05)
[2018-05-25] MEDS: ATORVASTATIN CA 40 MG TABLET (FP) PO SCH (21:04)
[2018-05-26] MEDS ORDERED: PT OWN MED DRAWER 7, Y5N ONE ×3 (05:21→18:44)
[2018-05-26] MEDS: metFORMIN HCL 500 MG TABLET (FP) PO SCH ×2 (05:59→16:43)
[2018-05-26] MEDS: sitaGLIPtin PHOSPHATE 50 MG TABLET PO SCH (05:59)
[2018-05-26] MEDS: INSULIN SLIDING SCALE (NOVOLOG) 1 VIAL SQ SCH ×4 (05:59→21:51)
[2018-05-26] MEDS: ALBUTEROL SO4 2.5/IPRATROPIUM 0.5 INH SOL 3 ML VIAL.NEB. NEB SCH ×4 (07:55→20:00)
[2018-05-26] MEDS ORDERED: INSULIN (LEVEMIR) 100 UNITS/ML UNITS SQ ONE (09:18)
[2018-05-26] MEDS ORDERED: INSULIN (NOVOLOG) ASPART 100 UNITS/ML 10ML VIAL ONE (09:18)
[2018-05-26] MEDS: NICOTINE 21 MG/24 HOURS TOPICAL PATCH TD SCH (09:52)
[2018-05-26] MEDS: PANTOPRAZOLE 40 MG TABLET (FP) PO SCH (09:52)
[2018-05-26] MEDS: DOCUSATE SODIUM 100 MG CAPSULE (FP) PO SCH ×2 (09:52→21:32)
[2018-05-26] MEDS: ASPIRIN COATED 81 MG TABLET.EC PO SCH (09:52)
[2018-05-26] MEDS: LISINOPRIL 5 MG TABLET (FP) PO SCH (09:52)
[2018-05-26] MEDS: MAGNESIUM OXIDE 400 MG TABLET (FP) PO SCH ×2 (09:52→21:33)
[2018-05-26] MEDS: methylPREDNISolone NA SUCC 40 MG/1 ML VIAL IVPUSH SCH ×2 (09:53→21:44)
[2018-05-26] MEDS: POLYETHYLENE GLYCOL 3350 119 GM BTL PO SCH (09:53)
[2018-05-26] MEDS: BUDESONIDE/FORMETEROL FUMARATE 80/4.5 mcg INHALER IH SCH ×2 (10:00→21:54)
[2018-05-26 12:32] LABS: ANION GAP 11 MMOL/L (8-16); BLOOD UREA NITROGEN 24 mg/dL (7-18); CALCIUM 8.6 mg/dL (8.5-10.1); CHLORIDE 94 mmol/L (98-107); CO2 28 mmol/L (21-32); CREATININE 0.7 mg/dL (0.55-1.3); POTASSIUM 4.6 mmol/L (3.5-5.1); SODIUM 133 mmol/L (136-145)
[2018-05-26 13:18] LABS: GLUCOSE,RANDOM 329 mg/dL (74-106)
[2018-05-26 13:27] LABS: BASO % 0.3 % (0-2.0); EOS % 0.1 % (0-4.5); HEMATOCRIT 43.5 % (32.4-45.2); HEMOGLOBIN 13.9 GM/dL (10.7-15.3); LYMPH % 27.4 % (8-40); MCH 28.3 pg (25.7-33.7); MEAN CELL VOLUME 88.5 fl (80-96); MEAN PLT VOLUME 7.8 fl (7.5-11.1); MONO % 8.6 % (3.8-10.2); NEUT % 63.6 % (42.8-82.8); PLATELET COUNT 403 K/MM3 (134-434); RBC 4.92 M/mm3 (3.60-5.2); RDW 13.6 % (11.6-15.6); WHITE BLOOD COUNT 14.1 K/mm3 (4.0-10.0)
--- NOTE | 2018-05-26 17:11 | PN ---
Progress Note (short form) - Note Progress Note: seen and examined in room ambulating reports SOB this morning and increased coughing since last night productive cough yellow sputum admits current smoker -- I have not smoked in 4 days Vital Signs Period Temp Pulse Resp BP Sys/Soriano Pulse Ox Last 24 Hr 97.3 F-98.1 F 93-108 18-20 113-130/54-69 95-95 neck supple heart s1/s2 lungs decreased BS throughout / no wheezing abd soft no tender ext no edema CBC, BMP 05/26/18 06:00 05/26/18 06:00 CBC, BMP 05/21/18 06:23 05/21/18 06:23 Active Medications Acetaminophen (Tylenol -) 500 mg PO Q6H PRN PRN Reason: PAIN LEVEL 1-5 Last Admin: 05/26/18 16:43 Dose: 500 mg Albuterol/Ipratropium (Duoneb -) 1 amp NEB RQID [facility] Last Admin: 05/26/18 16:03 Dose: 1 amp Albuterol/Ipratropium (Duoneb -) 1 amp NEB Q4H PRN PRN Reason: SHORTNESS OF BREATH Aspirin (Ecotrin -) 81 mg PO DAILY [facility] Last Admin: 05/26/18 09:52 Dose: 81 mg Atorvastatin Calcium (Lipitor -) 40 mg PO HS [facility] Last Admin: 05/25/18 21:04 Dose: 40 mg Budesonide/Formoterol Fumarate (Symbicort 80/4.5mcg -) 2 puff IH BID [facility] Last Admin: 05/26/18 10:00 Dose: 2 puff Docusate Sodium (Colace -) 200 mg PO BID [facility] Last Admin: 05/26/18 09:52 Dose: 200 mg Insulin Aspart (Novolog Vial Sliding Scale -) 1 vial SQ ACHS [facility]; Protocol Last Admin: 05/26/18 16:43 Dose: 6 units Lisinopril (Prinivil) 5 mg PO DAILY [facility] Last Admin: 05/26/18 09:52 Dose: 5 mg Magnesium Oxide (Mag-Ox -) 400 mg PO BID [facility] Last Admin: 05/26/18 09:52 Dose: 400 mg Metformin HCl (Glucophage -) 1,000 mg PO BID@0700,1630 [facility] Last Admin: 05/26/18 16:43 Dose: 1,000 mg Methylprednisolone Sodium Succinate (Solu-Medrol -) 40 mg IVPUSH BID [facility] Last Admin: 05/26/18 09:53 Dose: 40 mg Nicotine (Nicoderm Patch -) 21 mg TD DAILY [facility] Last Admin: 05/26/18 09:52 Dose: 21 mg Pantoprazole Sodium (Protonix -) 40 mg PO DAILY [facility] Last Admin: 05/26/18 09:52 Dose: 40 mg Polyethylene Glycol (Miralax (For Daily Use) -) 17 gm PO DAILY [facility] Last Admin: 05/26/18 09:53 Dose: Not Given Sitagliptin Phosphate (Januvia -) 100 mg PO DAILY@0700 [facility] Last Admin: 05/26/18 05:59 Dose: 100 mg # COPD exacebation D/C smoking Inh steroids / LABA / rescue inhaler IV steroids PPI -- will taper #DM A1c >10 - uncontrolled (diabetic for 12 yrs) resume metformin add Januvia will resume amaryl continue Insulin while in hosp =patient declines Insulin as out patient diet education statins / ACEi / asa patient states she will not use "needles" ( insulin ) as out patient
[2018-05-26] MEDS ORDERED: DEXTROSE 5%-WATER - 50 ML IVPB ONE (21:16)
[2018-05-26] MEDS ORDERED: cefTRIAXone SODIUM 1 GM VIAL ONE (21:16)
[2018-05-26] MEDS: CEFTRIAXONE 1 GM in DEXTROSE 5%-WATER - 50 ML IVPB SCH (21:32)
[2018-05-26] MEDS: AZITHROMYCIN 250 MG TABLET PO SCH (21:33)
[2018-05-26] MEDS: ATORVASTATIN CA 40 MG TABLET (FP) PO SCH (21:33)
[2018-05-27] MEDS: sitaGLIPtin PHOSPHATE 50 MG TABLET PO SCH (06:38)
[2018-05-27] MEDS: metFORMIN HCL 500 MG TABLET (FP) PO SCH (06:38)
[2018-05-27] MEDS: INSULIN SLIDING SCALE (NOVOLOG) 1 VIAL SQ SCH ×2 (06:39→11:43)
[2018-05-27] MEDS ORDERED: GLIMEPIRIDE 2 MG TABLET (FP) PO SCH (07:00)
[2018-05-27 07:04] VITALS: PULSE 103
[2018-05-27] MEDS: ALBUTEROL SO4 2.5/IPRATROPIUM 0.5 INH SOL 3 ML VIAL.NEB. NEB SCH ×2 (07:35→11:53)
[2018-05-27 08:32] LABS: ANION GAP 9 MMOL/L (8-16); BLOOD UREA NITROGEN 24 mg/dL (7-18); CALCIUM 9.1 mg/dL (8.5-10.1); CHLORIDE 94 mmol/L (98-107); CO2 29 mmol/L (21-32); CREATININE 0.6 mg/dL (0.55-1.3); POTASSIUM 4.5 mmol/L (3.5-5.1); SODIUM 132 mmol/L (136-145)
[2018-05-27 08:43] LABS: BASO % 0.2 % (0-2.0); EOS % 0.1 % (0-4.5); HEMATOCRIT 44.8 % (32.4-45.2); HEMOGLOBIN 15.4 GM/dL (10.7-15.3); MCH 30.2 pg (25.7-33.7); MCHC 34.4 g/dl (32.0-36.0); MEAN CELL VOLUME 87.7 fl (80-96); MEAN PLT VOLUME 7.7 fl (7.5-11.1); MONO % 7.6 % (3.8-10.2); NEUT % 68.1 % (42.8-82.8); PLATELET COUNT 469 K/MM3 (134-434); RBC 5.11 M/mm3 (3.60-5.2); RDW 13.6 % (11.6-15.6); WHITE BLOOD COUNT 13.7 K/mm3 (4.0-10.0)
[2018-05-27] MEDS ORDERED: DEXTROSE 5%-WATER - 50 ML IVPB ONE (08:49)
[2018-05-27] MEDS ORDERED: cefTRIAXone SODIUM 1 GM VIAL ONE (08:49)
[2018-05-27 09:19] LABS: GLUCOSE,RANDOM 326 mg/dL (74-106)
[2018-05-27] MEDS ORDERED: predniSONE 20 MG TABLET (UD) PO SCH (10:00)
[2018-05-27] MEDS: DOCUSATE SODIUM 100 MG CAPSULE (FP) PO SCH (10:55)
[2018-05-27] MEDS: MAGNESIUM OXIDE 400 MG TABLET (FP) PO SCH (10:55)
[2018-05-27] MEDS: PANTOPRAZOLE 40 MG TABLET (FP) PO SCH (10:55)
[2018-05-27] MEDS: CEFTRIAXONE 1 GM in DEXTROSE 5%-WATER - 50 ML IVPB SCH (10:56)
[2018-05-27] MEDS: AZITHROMYCIN 250 MG TABLET PO SCH (10:56)
[2018-05-27] MEDS: ASPIRIN COATED 81 MG TABLET.EC PO SCH (10:56)
[2018-05-27] MEDS: LISINOPRIL 5 MG TABLET (FP) PO SCH (10:57)
[2018-05-27] MEDS: BUDESONIDE/FORMETEROL FUMARATE 80/4.5 mcg INHALER IH SCH (10:57)
[2018-05-27] MEDS: POLYETHYLENE GLYCOL 3350 119 GM BTL PO SCH (10:58)
[2018-05-27] MEDS: NICOTINE 21 MG/24 HOURS TOPICAL PATCH TD SCH (10:58)
--- NOTE | 2018-05-27 11:39 | DS ---
Physical Examination Vital Signs: Vital Signs Temperature 97.9 F 05/27/18 07:03 Pulse Rate 103 H 05/27/18 07:03 Respiratory Rate 18 05/27/18 07:03 Blood Pressure 153/65 05/27/18 07:03 O2 Sat by Pulse Oximetry (%) 96 05/26/18 21:00 Findings/Remarks: 05/20/18 09:37 62y F hx of COPD,DM, presents with sob. Patient endorses 2 days of diarrhea that has since resolved she endorses nasal congestion and cough productive of whitish sputum over the past 4 days she endorses mild dyspnea on exertion without associated fevers, chest pain, hemoptysis, leg swelling, back pain. Patient endorses some mild epigastric pain and nausea without any vomiting. No associated orthopnea. +sick contacts +chronic smoking # COPD exacebation D/C smoking Inh steroids / LABA / rescue inhaler PO steroids & PPI -- will taper to d/c as out patient #DM A1c >10 - uncontrolled (diabetic for 12 yrs) resume metformin add Januvia will resume amaryl at 2 mg/day continue Insulin while in hosp =patient declines Insulin as out patient diet education statins / ACEi / asa patient states she will not use "needles" ( insulin ) as out patient - educated regarding continuous churn buttermaker risk / complications of uncotrolled DM patient to follow up at office Sunday post d/c Constitutional: Yes: Well Nourished, No Distress, Calm Eyes: Yes: Conjunctiva Clear, EOM Intact HENT: Yes: Atraumatic, Normocephalic Neck: Yes: Supple, Trachea Midline Cardiovascular: Yes: Regular Rate and Rhythm Respiratory: Yes: Diminished. No: Rhonchi, Wheezes Gastrointestinal: Yes: Normal Bowel Sounds ...Rectal Exam: Yes: Deferred Renal/: Yes: WNL Breast(s): Yes: WNL Musculoskeletal: Yes: WNL Extremities: Yes: WNL. No: Cool, Cyanosis, Deformity Edema: No Peripheral Pulses WNL: Yes Integumentary: Yes: WNL Neurological: Yes: WNL ...Motor Strength: WNL Psychiatric: Yes: Alert, Oriented Labs: CBC, BMP 05/27/18 06:48 05/27/18 06:48 Discharge Summary Reason For Visit: ACUTE EXACERBATION OF COPD Current Active Problems COPD exacerbation (Acute) current smoker Diabetes mellitus (Acute) uncontrolled A1c >10 Condition: Improved - Instructions Referrals: Jen Lr MD [Primary Care Provider] - Disposition: HOME - Home Medications Comprehensive Discharge Medication List: Ambulatory Orders Glimepiride [Amaryl -] 2 mg PO DAILY 01/05/17 Metformin HCl [Metformin HCl ER] 1,000 mg PO BID 01/05/17 Januvia 100 mg /day Symbicort 80/4.5 BID combivent inhaler BID prednisone 20 mg q day for 5 days take with food Zithromax 250 daily for 3 days
[2018-05-27 12:23] LABS: ANISOCYTOSIS 0; MACROCYTOSIS 0; PLATELET ESTIMATE NORMAL; TEAR DROP CELLS 1+
[2018-05-27 13:30] VITALS: BP 112/54; TEMP 98.8
== END 2018-05-27 15:07 | disposition home or self-care (01) | DRG 192 ==
LOC: JER 09:09 → JERBED 14:38 → J8W 17:35
PROVIDERS: ADMIT Family Medicine; ATTEND Family Medicine
DX: J44.1 Chronic obstructive pulmonary disease with (acute) exacerbation (principal); E11.65 Type 2 diabetes mellitus with hyperglycemia; F17.210 Nicotine dependence, cigarettes, uncomplicated; R09.02 Hypoxemia; R00.0 Tachycardia, unspecified; R06.00 Dyspnea, unspecified; K59.00 Constipation, unspecified; Z78.0 Asymptomatic menopausal state
CPT/HCPCS: 36415; 71045-TC-FY; 71046-TC-FY; 71275-TC; 80048; 80053; 80061; 82550; 82803; 82962; 83036; 83721; 83735; 84436; 84443; 84484; 85025; 85027; 85610; 87804; 93005; 93010; 94640; 97116-GP; 99283-25; J7030

== ENCOUNTER 2022-07-20 12:40 | Emergency (ER) | payer MEDICARE, OTHER ==
[2022-07-20 12:47] VITALS: BP 146/80; PULSE 77; RESP 16; TEMP 98; BMI 29.8
[2022-07-20] MEDS ORDERED: NAPROXEN 500 MG TABLET PO ONE (13:18)
[2022-07-20] MEDS ORDERED: NAPROXEN 500 MG TABLET ONE (13:43)
== END 2022-07-20 14:33 | disposition home or self-care (01) ==
LOC: JERFT 12:40
DX: M54.41 Lumbago with sciatica, right side (principal)
CPT/HCPCS: 73590-TC-RT-FY; 99283-25

== ENCOUNTER 2022-07-30 17:12 | Emergency (ER) | payer MEDICARE, OTHER ==
[2022-07-30 17:43] VITALS: BP 146/63; PULSE 93; RESP 18; TEMP 97.2; BMI 27.4
[2022-07-30] MEDS ORDERED: CYCLOBENZAPRINE HCL 10 MG TABLET (FP) PO ONE (18:43)
[2022-07-30] MEDS ORDERED: KETOROLAC TROMETHAMINE 30 MG/1 ML VIAL IM ONE (18:43)
[2022-07-30] MEDS ORDERED: CYCLOBENZAPRINE HCL 10 MG TABLET (FP) ONE (19:02)
[2022-07-30] MEDS ORDERED: KETOROLAC TROMETHAMINE 30 MG/1 ML VIAL ONE (19:02)
== END 2022-07-30 19:37 | disposition home or self-care (01) ==
LOC: JERFT 17:12 → JER 17:12 → JERFT 19:37
DX: M54.31 Sciatica, right side (principal)
CPT/HCPCS: 99284-25

== ENCOUNTER 2024-01-21 08:34 | Emergency (ER) | payer OTHER ==
[2024-01-21 08:42] VITALS: TEMP 97.6; BMI 32.9
[2024-01-21 09:44] LABS: BASO % 0.5 % (0-2.0); EOS % 0.5 % (0-4.5); HEMATOCRIT 42.1 % (32.4-45.2); HEMOGLOBIN 13.9 GM/dL (10.7-15.3); LYMPH % 15.5 % (8-40); MCH 29.4 pg (25.7-33.7); MEAN CELL VOLUME 88.9 fl (80-96); MEAN PLT VOLUME 7.2 fl (7.5-11.1); MONO % 9.1 % (3.8-10.2); NEUT % 74.4 % (42.8-82.8); PLATELET COUNT 320 10^3/uL (134-434); RBC 4.73 M/mm3 (3.60-5.2); WHITE BLOOD COUNT 12.7 K/mm3 (4.0-10.0)
[2024-01-21 10:03] LABS: POTASSIUM 4.5 mmol/L (3.5-5.1)
[2024-01-21 10:06] LABS: ALBUMIN 2.8 g/dl (3.4-5.0); BLOOD UREA NITROGEN 16.1 mg/dL (7-18); CALCIUM 8.9 mg/dL (8.5-10.1)
[2024-01-21 10:09] LABS: CREATININE 0.7 mg/dL (0.55-1.3)
[2024-01-21 10:11] LABS: BILIRUBIN,TOTAL 0.8 mg/dL (0.2-1)
[2024-01-21 10:14] LABS: N-TERMINAL BNP 328.4 pg/ml (5-125)
[2024-01-21] MEDS: MECLIZINE HCL 12.5 MG TABLET PO ONE (10:31)
[2024-01-21 11:02] LABS: HIV INTERPRETATION NEGATIVE (NEGATIVE)
[2024-01-21] MEDS: AZITHROMYCIN IVPB 500 MG in DEXTROSE 5%-WATER - 250 ML IVPB ONE (11:56)
[2024-01-21 12:32] LABS: EPI CELLS 5 /uL (0-25.1); HYALINE CASTS 0 /uL (0-3.1); URINE APPEARANCE CLEAR; URINE BACTERIA 9 /uL (0-1359); URINE BILIRUBIN NEGATIVE (NEGATIVE); URINE COLOR YELLOW; URINE GLUCOSE (UA) 2+ (NEGATIVE); URINE KETONE NEGATIVE (NEGATIVE); URINE LEUK ESTERASE NEGATIVE (NEGATIVE); URINE NITRITE NEGATIVE (NEGATIVE); URINE PROTEIN 2+ (NEGATIVE); URINE RBC 22 /uL (0-23.9); URINE WBC 39 /uL (0-25.8)
[2024-01-21] MEDS ORDERED: LISINOPRIL 5 MG TABLET ONE (12:34)
[2024-01-21] MEDS ORDERED: FUROSEMIDE 40 MG TABLET (FP) ONE (12:34)
[2024-01-21] MEDS ORDERED: AZITHROMYCIN 500 MG TABLET ONE (12:34)
[2024-01-21] MEDS: FUROSEMIDE 40 MG TABLET (FP) PO ONE (12:38)
[2024-01-21] MEDS: AZITHROMYCIN 500 MG TABLET PO ONE (12:38)
[2024-01-21] MEDS: LISINOPRIL 5 MG TABLET PO ONE (12:38)
[2024-01-21 14:42] VITALS: BP 145/82; RESP 20
[2024-01-21 14:43] VITALS: PULSE 101
== END 2024-01-21 16:02 | disposition home or self-care (01) ==
LOC: JER 08:34
DX: U07.1 COVID-19 (principal); R06.02 Shortness of breath; R05.9 Cough, unspecified; R00.0 Tachycardia, unspecified; R60.0 Localized edema
CPT/HCPCS: 0241U-QW; 36415; 71045-TC-FY; 80053; 81003; 82570; 83880; 84156; 84484; 85025; 86803; 87389; 93005; 93010; 93970-TC; 99285-25

== ENCOUNTER 2024-03-03 22:45 | Inpatient (IN) | payer OTHER ==
[2024-03-03 22:55] VITALS: BMI 34.4
[2024-03-03] MEDS: ALBUTEROL SO4 2.5/IPRATROPIUM 0.5 INH SOL 3 ML VIAL.NEB. NEB ONE (23:21)
[2024-03-03] MEDS ORDERED: ALBUTEROL SO4 2.5/IPRATROPIUM 0.5 INH SOL 3 ML VIAL.NEB. NEB ONE (23:23)
[2024-03-04] MEDS: SODIUM PHOSPHATE/NA BIPHOS 133 ML ENEMA PR ONE (00:45)
[2024-03-04 01:15] LABS: BASO % 0.9 % (0-2.0); EOS % 0.7 % (0-4.5); HEMATOCRIT 39.7 % (32.4-45.2); HEMOGLOBIN 12.9 GM/dL (10.7-15.3); LYMPH % 14.8 % (8-40); MCH 28.4 pg (25.7-33.7); MCHC 32.4 g/dl (32.0-36.0); MEAN CELL VOLUME 87.7 fl (80-96); MEAN PLT VOLUME 6.8 fl (7.5-11.1); MONO % 8.2 % (3.8-10.2); NEUT % 75.4 % (42.8-82.8); PLATELET COUNT 412 10^3/uL (134-434); RBC 4.53 M/mm3 (3.60-5.2); RDW 14.3 % (11.6-15.6); WHITE BLOOD COUNT 13.4 K/mm3 (4.0-10.0)
[2024-03-04 01:23] LABS: EPI CELLS 19 /uL (0-25.1); HYALINE CASTS 1 /uL (0-3.1); URINE APPEARANCE CLEAR; URINE BACTERIA 25 /uL (0-1359); URINE BILIRUBIN NEGATIVE (NEGATIVE); URINE COLOR YELLOW; URINE GLUCOSE (UA) 3+ (NEGATIVE); URINE KETONE 1+ (NEGATIVE); URINE LEUK ESTERASE NEGATIVE (NEGATIVE); URINE NITRITE NEGATIVE (NEGATIVE); URINE PROTEIN 3+ (NEGATIVE); URINE RBC 10 /uL (0-23.9)
[2024-03-04 01:40] LABS: POTASSIUM 5.1 mmol/L (3.5-5.1)
[2024-03-04 01:42] LABS: ALBUMIN 2.8 g/dl (3.4-5.0); BLOOD UREA NITROGEN 19.9 mg/dL (7-18); CALCIUM 9.3 mg/dL (8.5-10.1); MAGNESIUM 1.6 mg/dL (1.8-2.4)
[2024-03-04 01:45] LABS: CREATININE 0.8 mg/dL (0.55-1.3)
[2024-03-04 01:47] LABS: TOT PROT 7.1 g/dl (6.4-8.2)
[2024-03-04] MEDS: CEFTRIAXONE 1 GM in DEXTROSE 5%-WATER - 100 ML IVPB ONE (01:52)
[2024-03-04] MEDS: AZITHROMYCIN IVPB 500 MG in DEXTROSE 5%-WATER - 250 ML IVPB ONE (01:52)
[2024-03-04] MEDS ORDERED: AZITHROMYCIN IVPB 500 MG/250 ML BAG IVPB ONE (01:53)
[2024-03-04] MEDS ORDERED: CEFTRIAXONE 1 GM/50 ML BAG ONE (01:53)
[2024-03-04] MEDS ORDERED: ACETAMINOPHEN 325 MG TABLET (FP) PO PRN (02:35)
[2024-03-04 02:37] LABS: HIV INTERPRETATION NEGATIVE (NEGATIVE)
[2024-03-04] MEDS ORDERED: ALBUTEROL SO4 2.5/IPRATROPIUM 0.5 INH SOL 3 ML VIAL.NEB. NEB PRN (02:37)
[2024-03-04] MEDS: ENOXAPARIN NA (PORCINE) 40 MG/0.4 ML DISP.SYRIN SQ SCH (03:55)
[2024-03-04] MEDS: MAGNESIUM SULF 50% (8.12 MEQ/2 ML-1 GM VIAL) IVPB ONE (03:55)
[2024-03-04] MEDS: POLYETHYLENE GLYCOL (HEALTHYLAX) 3350 17 GM PACKET PO SCH (03:55)
[2024-03-04] MEDS: PANTOPRAZOLE 40 MG TABLET PO SCH (03:55)
[2024-03-04] MEDS: INSULIN ASPART SLIDING SCALE (NOVOLOG) 1 VIAL SQ SCH ×2 (03:56→12:17)
[2024-03-04] MEDS: BISACODYL 10 MG SUPP.RECT PR ONE (03:59)
[2024-03-04] MEDS: D5-1/2NS+10 MEQ KCL - 10 MEQ/1,000 ML INFUS.BAG IV SCH ×2 (04:21→05:03)
[2024-03-04] MEDS ORDERED: MAGNESIUM SULFATE IN WATER 2 GM/50 ML IVPB IVPB ONE (04:30)
[2024-03-04] MEDS ORDERED: ENOXAPARIN NA (PORCINE) 40 MG/0.4 ML DISP.SYRIN SQ ONE (09:09)
[2024-03-04] MEDS ORDERED: PANTOPRAZOLE 40 MG TABLET PO ONE (09:13)
[2024-03-04] MEDS: DOCUSATE SODIUM 100 MG CAPSULE (FP) PO SCH (09:38)
[2024-03-04] MEDS ORDERED: ALBUTEROL SO4 2.5/IPRATROPIUM 0.5 INH SOL 3 ML VIAL.NEB. NEB ONE (11:53)
[2024-03-04] MEDS ORDERED: methylPREDNISolone NA SUCC 40 MG/1 ML VIAL ONE (11:53)
[2024-03-04] MEDS ORDERED: INSULIN ASPART SLIDING SCALE (NOVOLOG) 1 VIAL SQ ONE (11:54)
[2024-03-04] MEDS ORDERED: FUROSEMIDE 40 MG/4 ML INJECTABLE VIAL ONE (11:54)
[2024-03-04] MEDS: FUROSEMIDE 40 MG/4 ML INJECTABLE VIAL IVPUSH ONE (12:18)
[2024-03-04] MEDS: methylPREDNISolone NA SUCC 125 MG/2 ML VIAL IVPUSH SCH (12:18)
[2024-03-04] MEDS: ALBUTEROL SO4 2.5/IPRATROPIUM 0.5 INH SOL 3 ML VIAL.NEB. NEB SCH (12:18)
[2024-03-04] MEDS: BUDESONIDE/FORMETEROL FUMARATE 160/4.5 mcg INHALER IH SCH (12:18)
[2024-03-04] MEDS: ATORVASTATIN CA 40 MG TABLET (FP) PO SCH (21:23)
[2024-03-04] MEDS ORDERED: DOCUSATE SODIUM 100 MG CAPSULE (FP) PO SCH (22:00)
[2024-03-05] MEDS: INSULIN ASPART SLIDING SCALE (NOVOLOG) 1 VIAL SQ SCH ×2 (07:37→07:44)
[2024-03-05] MEDS: CEFTRIAXONE 1 GM in DEXTROSE 5%-WATER - 50 ML IVPB SCH (09:00)
[2024-03-05] MEDS: AZITHROMYCIN IVPB 500 MG/250 ML BAG IVPB SCH (10:03)
[2024-03-05 10:35] LABS: HEMATOCRIT 39.4 % (32.4-45.2); HEMOGLOBIN 13.2 GM/dL (10.7-15.3); MCH 29.4 pg (25.7-33.7); MCHC 33.4 g/dl (32.0-36.0); MEAN CELL VOLUME 87.8 fl (80-96); MEAN PLT VOLUME 8.1 fl (7.5-11.1); PLATELET COUNT 459 10^3/uL (134-434); RBC 4.49 M/mm3 (3.60-5.2); RDW 14.3 % (11.6-15.6)
[2024-03-05 10:42] LABS: POTASSIUM 4.9 mmol/L (3.5-5.1)
[2024-03-05 10:46] LABS: ALBUMIN 2.6 g/dl (3.4-5.0); BLOOD UREA NITROGEN 23.8 mg/dL (7-18)
[2024-03-05 10:47] LABS: CALCIUM 9.1 mg/dL (8.5-10.1)
[2024-03-05 10:48] LABS: MAGNESIUM 2.2 mg/dL (1.8-2.4)
[2024-03-05 10:49] LABS: CREATININE 0.8 mg/dL (0.55-1.3)
[2024-03-05 10:52] LABS: BILIRUBIN,TOTAL 0.8 mg/dL (0.2-1); TOT PROT 7.2 g/dl (6.4-8.2)
[2024-03-05 11:21] LABS: ANISOCYTOSIS 1+; MACROCYTOSIS 1+
[2024-03-05 11:22] LABS: PLATELET ESTIMATE INCREASED
[2024-03-05] MEDS: INSULIN (LEVEMIR) 100 UNITS/ML UNITS SQ SCH (21:58)
[2024-03-06 10:36] LABS: BASO % 0.1 % (0-2.0); HEMATOCRIT 37.1 % (32.4-45.2); HEMOGLOBIN 11.9 GM/dL (10.7-15.3); LYMPH % 11.1 % (8-40); MCH 28.6 pg (25.7-33.7); MCHC 32.1 g/dl (32.0-36.0); MEAN CELL VOLUME 89.1 fl (80-96); MEAN PLT VOLUME 7.3 fl (7.5-11.1); MONO % 9.1 % (3.8-10.2); NEUT % 79.7 % (42.8-82.8); PLATELET COUNT 439 10^3/uL (134-434); RBC 4.17 M/mm3 (3.60-5.2); RDW 14.1 % (11.6-15.6); WHITE BLOOD COUNT 17.9 K/mm3 (4.0-10.0)
[2024-03-06 11:20] LABS: POTASSIUM 4.3 mmol/L (3.5-5.1)
[2024-03-06 11:21] LABS: CALCIUM 9.3 mg/dL (8.5-10.1)
[2024-03-06 11:22] LABS: BLOOD UREA NITROGEN 39.7 mg/dL (7-18)
[2024-03-06 11:25] LABS: CREATININE 0.8 mg/dL (0.55-1.3)
[2024-03-06] MEDS: INSULIN ASPART SLIDING SCALE (NOVOLOG) 1 VIAL SQ SCH (12:47)
[2024-03-06] MEDS ORDERED: INSULIN ASPART SLIDING SCALE (NOVOLOG) 1 VIAL SQ SCH (14:00)
[2024-03-06 14:53] VITALS: RESP 18
[2024-03-06] MEDS: INSULIN (LEVEMIR) 100 UNITS/ML UNITS SQ SCH (23:17)
[2024-03-07] MEDS ORDERED: INSULIN (LEVEMIR) 100 UNITS/ML UNITS SQ SCH (08:01)
[2024-03-07] MEDS: methylPREDNISolone NA SUCC 40 MG/1 ML VIAL IVPUSH SCH (09:36)
[2024-03-07] MEDS: INSULIN ASPART SLIDING SCALE (NOVOLOG) 1 VIAL SQ SCH ×2 (11:17→23:04)
[2024-03-07 11:58] LABS: BASO % 0.4 % (0-2.0); EOS % 0.1 % (0-4.5); HEMATOCRIT 36.6 % (32.4-45.2); HEMOGLOBIN 12.3 GM/dL (10.7-15.3); LYMPH % 14.1 % (8-40); MCH 29.3 pg (25.7-33.7); MCHC 33.5 g/dl (32.0-36.0); MEAN CELL VOLUME 87.6 fl (80-96); MEAN PLT VOLUME 7.2 fl (7.5-11.1); MONO % 9.4 % (3.8-10.2); PLATELET COUNT 441 10^3/uL (134-434); RBC 4.18 M/mm3 (3.60-5.2); WHITE BLOOD COUNT 13.5 K/mm3 (4.0-10.0)
[2024-03-07] MEDS: FLUTICASONE/UMECLIDIN/VILANTER(200-62.5-25 TRELEGY ELLIPTA) INAHLER IH SCH (15:39)
[2024-03-07] MEDS: INSULIN (LEVEMIR) 100 UNITS/ML UNITS SQ SCH (23:04)
[2024-03-08] MEDS: POLYETHYLENE GLYCOL (HEALTHYLAX) 3350 17 GM PACKET PO SCH (09:10)
[2024-03-08 09:28] LABS: BASO % 0.2 % (0-2.0); HEMATOCRIT 39.2 % (32.4-45.2); HEMOGLOBIN 12.8 GM/dL (10.7-15.3); LYMPH % 32.2 % (8-40); MCH 28.6 pg (25.7-33.7); MCHC 32.6 g/dl (32.0-36.0); MEAN CELL VOLUME 87.8 fl (80-96); MEAN PLT VOLUME 7.3 fl (7.5-11.1); MONO % 8.2 % (3.8-10.2); NEUT % 58.4 % (42.8-82.8); PLATELET COUNT 484 10^3/uL (134-434); RBC 4.47 M/mm3 (3.60-5.2); RDW 13.8 % (11.6-15.6); WHITE BLOOD COUNT 13.8 K/mm3 (4.0-10.0)
[2024-03-08 10:45] LABS: POTASSIUM 4.2 mmol/L (3.5-5.1)
[2024-03-08 10:47] LABS: BLOOD UREA NITROGEN 27.1 mg/dL (7-18); CALCIUM 9.3 mg/dL (8.5-10.1)
[2024-03-08 10:51] LABS: CREATININE 0.7 mg/dL (0.55-1.3)
[2024-03-08] MEDS: ALBUTEROL SO4 0.083% IH SOL 2.5 MG/3 ML VIAL.NEB. NEB PRN (11:45)
[2024-03-09 09:59] LABS: BASO % 0.5 % (0-2.0); EOS % 1.4 % (0-4.5); HEMOGLOBIN 12.9 GM/dL (10.7-15.3); LYMPH % 27.1 % (8-40); MCH 29.3 pg (25.7-33.7); MCHC 33.9 g/dl (32.0-36.0); MEAN CELL VOLUME 86.4 fl (80-96); MEAN PLT VOLUME 7.2 fl (7.5-11.1); MONO % 8.8 % (3.8-10.2); NEUT % 62.2 % (42.8-82.8); PLATELET COUNT 450 10^3/uL (134-434); RDW 14.1 % (11.6-15.6); WHITE BLOOD COUNT 12.8 K/mm3 (4.0-10.0)
[2024-03-09] MEDS: BENZOCAINE/MENTHOL 1 EACH LOZENGE MM PRN (16:00)
[2024-03-10 08:54] LABS: BASO % 0.6 % (0-2.0); EOS % 1.6 % (0-4.5); HEMATOCRIT 39.9 % (32.4-45.2); HEMOGLOBIN 13.1 GM/dL (10.7-15.3); LYMPH % 26.3 % (8-40); MCH 28.5 pg (25.7-33.7); MCHC 32.7 g/dl (32.0-36.0); MEAN CELL VOLUME 87.1 fl (80-96); MEAN PLT VOLUME 6.9 fl (7.5-11.1); MONO % 8.3 % (3.8-10.2); NEUT % 63.2 % (42.8-82.8); PLATELET COUNT 480 10^3/uL (134-434); RBC 4.58 M/mm3 (3.60-5.2); WHITE BLOOD COUNT 15.3 K/mm3 (4.0-10.0)
[2024-03-11] MEDS: INSULIN (LEVEMIR) 100 UNITS/ML UNITS SQ SCH (06:59)
[2024-03-11] MEDS ORDERED: INSULIN (LEVEMIR) 100 UNITS/ML UNITS SQ SCH (07:46)
[2024-03-11 10:21] LABS: BASO % 0.5 % (0-2.0); EOS % 1.1 % (0-4.5); HEMATOCRIT 38.9 % (32.4-45.2); HEMOGLOBIN 12.4 GM/dL (10.7-15.3); LYMPH % 24.3 % (8-40); MCH 28.5 pg (25.7-33.7); MEAN CELL VOLUME 89.3 fl (80-96); MEAN PLT VOLUME 7.2 fl (7.5-11.1); MONO % 8.5 % (3.8-10.2); NEUT % 65.6 % (42.8-82.8); PLATELET COUNT 454 10^3/uL (134-434); RBC 4.36 M/mm3 (3.60-5.2); RDW 13.9 % (11.6-15.6); WHITE BLOOD COUNT 17.1 K/mm3 (4.0-10.0)
[2024-03-11 10:39] LABS: POTASSIUM 4.2 mmol/L (3.5-5.1)
[2024-03-11 10:44] LABS: CALCIUM 8.9 mg/dL (8.5-10.1)
[2024-03-11 10:47] LABS: CREATININE 0.8 mg/dL (0.55-1.3)
[2024-03-11 18:20] VITALS: BP 169/68; PULSE 89; TEMP 97.9
== END 2024-03-11 18:57 | disposition home or self-care (01) | DRG 291 ==
LOC: JER 22:45 → JERBED 03-04 02:14 → J6W 03-04 14:29 → J5S 03-05 09:50
PROVIDERS: ADMIT Internal Medicine; ATTEND Internal Medicine
DX: I11.0 Hypertensive heart disease with heart failure (principal); I50.31 Acute diastolic (congestive) heart failure; J18.9 Pneumonia, unspecified organism; J44.1 Chronic obstructive pulmonary disease with (acute) exacerbation; J44.0 Chronic obstructive pulmonary disease with (acute) lower respiratory infection; E11.9 Type 2 diabetes mellitus without complications; J44.9 Chronic obstructive pulmonary disease, unspecified; R26.81 Unsteadiness on feet; F41.9 Anxiety disorder, unspecified; M54.30 Sciatica, unspecified side; K59.00 Constipation, unspecified; E88.09 Other disorders of plasma-protein metabolism, not elsewhere classified; F17.210 Nicotine dependence, cigarettes, uncomplicated; E83.42 Hypomagnesemia; R79.89 Other specified abnormal findings of blood chemistry; M62.81 Muscle weakness (generalized); M54.50 Low back pain, unspecified; E66.9 Obesity, unspecified; Z68.34 Body mass index [BMI] 34.0-34.9, adult
CPT/HCPCS: 0241U-QW; 36415; 71045-TC-FY; 71046-TC-FY; 80048; 80053; 81003; 82962; 83036; 83735; 83880; 84484; 85025; 86803; 87086; 87389; 93005; 93010; 94640; 94761; 97116-GP; 97161-GP; 99285-25

== ENCOUNTER 2025-02-17 04:08 | Inpatient (IN) | payer OTHER ==
[2025-02-17] MEDS: ALBUTEROL SO4 2.5/IPRATROPIUM 0.5 INH SOL 3 ML VIAL.NEB. NEB SCH ×2 (04:37→11:13)
[2025-02-17] MEDS ORDERED: methylPREDNISolone NA SUCC 125 MG/2 ML VIAL ONE (05:34)
[2025-02-17] MEDS ORDERED: CEFTRIAXONE 1 GM/50 ML BAG ONE (05:34)
[2025-02-17] MEDS ORDERED: AZITHROMYCIN IVPB 500 MG/250 ML BAG IVPB ONE (05:35)
[2025-02-17] MEDS: methylPREDNISolone NA SUCC 125 MG/2 ML VIAL IVPB ONE (05:49)
[2025-02-17] MEDS: CEFTRIAXONE 1 GM in DEXTROSE 5%-WATER - 50 ML IVPB ONE (05:49)
[2025-02-17] MEDS: AZITHROMYCIN IVPB 500 MG in DEXTROSE 5%-WATER - 250 ML IVPB ONE (05:57)
[2025-02-17 06:13] LABS: GLUCOSE,RANDOM 299.0 mg/dL (74-106); TOT PROT 6.4 g/dl (6.4-8.2)
[2025-02-17 06:14] LABS: CO2 24.0 mmol/L (21-32)
[2025-02-17 06:15] LABS: ALK PHOS 215.0 U/L (40-150)
[2025-02-17 06:18] LABS: CREATININE 0.6 mg/dL (0.55-1.3); SGOT/AST 32.0 U/L (5-34); SGPT/ALT 30.0 U/L (0-55)
[2025-02-17 06:19] LABS: ABSOLUTE IMMATURE GRANULOCYTES 0.09 x10^3/uL (0.0-0.031); BASOPHILS # 0.06 x10^3/uL (0.01-0.08); EOSINOPHIL % 3.2 % (0.7-5.8); EOSINOPHILS # 0.30 x10^3/uL (0.04-0.36); MCHC 30.9 g/dl (32.2-35.5); MEAN CELL VOLUME 92.6 fl (79.4-94.8); MEAN PLT VOLUME 11.0 fl (9.4-12.3); MONOCYTE # 0.75 x10^3/uL (0.24-0.86); MONOCYTE % 7.9 % (4.7-12.5); RDW 13.8 % (12.4-16.4)
[2025-02-17 06:29] LABS: INR 1.0 (0.83-1.09); N-TERMINAL BNP 360.0 pg/mL (0-299.9); PROTHROMBIN TIME (PATIENT) 10.9 SEC (9.7-13.0)
[2025-02-17 06:32] LABS: ACTIVATED PTT 32.1 SECONDS (25.2-36.5)
[2025-02-17 06:42] LABS: HCV DIAGNOSTIC IN-HOUSE W/RFLX NON-REACTIVE (NONREACTIVE); HIV INTERPRETATION NEGATIVE (NEGATIVE)
[2025-02-17] MEDS ORDERED: D5-1/2NS+20 MEQ KCL - 20 MEQ/1,000 ML INFUS.BAG IV SCH (07:45)
[2025-02-17 09:01] LABS: URINE APPEARANCE CLEAR; URINE COLOR YELLOW
[2025-02-17 09:02] LABS: URINE BILIRUBIN NEGATIVE (NEGATIVE); URINE GLUCOSE (UA) 3+ (NEGATIVE); URINE KETONE NEGATIVE (NEGATIVE); URINE LEUK ESTERASE NEGATIVE (NEGATIVE); URINE NITRITE NEGATIVE (NEGATIVE); URINE PROTEIN 3+ (NEGATIVE); URINE UROBILINOGEN 0.2 mg/dL (0.2-1.0)
[2025-02-17] MEDS: FUROSEMIDE 40 MG/4 ML INJECTABLE VIAL IVPUSH SCH (10:59)
[2025-02-17] MEDS: ENOXAPARIN NA (PORCINE) 40 MG/0.4 ML DISP.SYRIN SQ SCH (10:59)
[2025-02-17] MEDS: LISINOPRIL 20 MG TABLET PO SCH (10:59)
[2025-02-17] MEDS: ASPIRIN COATED 81 MG TABLET.EC PO SCH (10:59)
[2025-02-17] MEDS: DOCUSATE SODIUM 100 MG CAPSULE (FP) PO SCH (10:59)
[2025-02-17] MEDS: LABETALOL HCL 100 MG TABLET (FP) PO SCH (10:59)
[2025-02-17] MEDS: INSULIN ASPART SLIDING SCALE (NOVOLOG) 1 VIAL SQ SCH ×2 (13:11→21:27)
[2025-02-17 14:27] VITALS: BMI 34.7
[2025-02-17] MEDS: INSULIN GLARGINE (LANTUS) 100 UNITS/ML UNITS SQ ONE (15:30)
[2025-02-17] MEDS: LACTATED RINGERS SOLUTION 1000 ML INFUS.BAG IV ONE ×2 (15:33→17:42)
[2025-02-17 16:11] LABS: GLUCOSE,RANDOM 613 mg/dL (74-106)
[2025-02-17 16:13] LABS: CO2 23 mmol/L (21-32)
[2025-02-17 16:17] LABS: CREATININE 0.71 mg/dL (0.55-1.3)
[2025-02-17 16:37] LABS: BG HCT 46.0 % (32.4-45.2); VENOUS BASE EXCESS -1.0 mmol/L (-2-2); VENOUS O2 SATURATION 88.6 % (70-80); VENOUS PCO2 51.1 mmHg (38-52); VENOUS PH 7.322 (7.310-7.410)
[2025-02-17] MEDS: POLYETHYLENE GLYCOL (HEALTHYLAX) 3350 17 GM PACKET PO SCH (19:02)
[2025-02-17] MEDS: INSULIN (NOVOLOG MIX 70/30) 100 UNITS/ML MDV SQ SCH (21:23)
[2025-02-17] MEDS: ATORVASTATIN CA 40 MG TABLET (FP) PO SCH (21:23)
[2025-02-17] MEDS ORDERED: INSULIN GLARGINE (LANTUS) 100 UNITS/ML UNITS SQ SCH (22:00)
[2025-02-18] MEDS: MINERAL OIL ENEMA 133 ML ENEMA RC ONE (00:05)
[2025-02-18 08:05] LABS: ABSOLUTE IMMATURE GRANULOCYTES 0.26 x10^3/uL (0.0-0.031); BASOPHILS # 0.04 x10^3/uL (0.01-0.08); EOSINOPHIL % 0.8 % (0.7-5.8); EOSINOPHILS # 0.11 x10^3/uL (0.04-0.36); MCHC 30.5 g/dl (32.2-35.5); MEAN CELL VOLUME 93.0 fl (79.4-94.8); MEAN PLT VOLUME 9.5 fl (9.4-12.3); MONOCYTE # 1.39 x10^3/uL (0.24-0.86); MONOCYTE % 9.6 % (4.7-12.5); RDW 14.0 % (12.4-16.4)
[2025-02-18 08:44] LABS: GLUCOSE,RANDOM 106.0 mg/dL (74-106)
[2025-02-18 08:46] LABS: CO2 26.0 mmol/L (21-32)
[2025-02-18 08:50] LABS: CREATININE 0.7 mg/dL (0.55-1.3)
[2025-02-18] MEDS: methylPREDNISolone NA SUCC 125 MG/2 ML VIAL IVPB SCH (10:08)
[2025-02-18] MEDS: CEFTRIAXONE 2 GM in DEXTROSE 5%-WATER 100 ML IVPB SCH (10:51)
[2025-02-18] MEDS: AZITHROMYCIN IVPB 500 MG/250 ML BAG IVPB SCH (10:53)
[2025-02-18] MEDS: ALBUTEROL SO4 2.5/IPRATROPIUM 0.5 INH SOL 3 ML VIAL.NEB. NEB SCH (11:14)
[2025-02-18] MEDS: methylPREDNISolone NA SUCC 40 MG/1 ML VIAL IVPB SCH (18:03)
[2025-02-19] MEDS ORDERED: INSULIN (NOVOLOG MIX 70/30) 100 UNITS/ML MDV SQ SCH (05:11)
[2025-02-19] MEDS ORDERED: LACTATED RINGERS SOLUTION 1,000 ML/1,000 ML INFUS.BAG IV SCH (05:30)
[2025-02-19] MEDS: methylPREDNISolone NA SUCC 40 MG/1 ML VIAL IVPB SCH (06:10)
[2025-02-19] MEDS: INSULIN (NOVOLOG MIX 70/30) 100 UNITS/ML MDV SQ SCH (07:17)
[2025-02-19] MEDS: guaiFENesin 600 MG TABLET.ER (FP) PO SCH (21:32)
[2025-02-19] MEDS ORDERED: guaiFENesin 600 MG TABLET.ER (FP) PO SCH (22:00)
[2025-02-20] MEDS ORDERED: INSULIN (NOVOLOG MIX 70/30) 100 UNITS/ML MDV SQ SCH (07:00)
[2025-02-20] MEDS: INSULIN (NOVOLOG MIX 70/30) 100 UNITS/ML MDV SQ SCH ×2 (07:12→16:33)
[2025-02-20 08:41] LABS: ABSOLUTE IMMATURE GRANULOCYTES 0.09 x10^3/uL (0.0-0.031); BASOPHILS # 0.02 x10^3/uL (0.01-0.08); EOSINOPHIL % 0.1 % (0.7-5.8); EOSINOPHILS # 0.02 x10^3/uL (0.04-0.36); MCHC 30.2 g/dl (32.2-35.5); MEAN CELL VOLUME 94.2 fl (79.4-94.8); MEAN PLT VOLUME 9.5 fl (9.4-12.3); MONOCYTE # 0.98 x10^3/uL (0.24-0.86); MONOCYTE % 6.8 % (4.7-12.5); RDW 13.6 % (12.4-16.4)
[2025-02-20 09:39] LABS: GLUCOSE,RANDOM 135.0 mg/dL (74-106)
[2025-02-20 09:41] LABS: CO2 29.0 mmol/L (21-32)
[2025-02-20 09:45] LABS: CREATININE 0.76 mg/dL (0.55-1.3)
[2025-02-21] MEDS: ACETAMINOPHEN 325 MG TABLET (FP) PO PRN (06:27)
[2025-02-21 06:56] LABS: ABSOLUTE IMMATURE GRANULOCYTES 0.07 x10^3/uL (0.0-0.031); BASOPHILS # 0.02 x10^3/uL (0.01-0.08); EOSINOPHIL % 0.1 % (0.7-5.8); EOSINOPHILS # 0.01 x10^3/uL (0.04-0.36); MCHC 30.3 g/dl (32.2-35.5); MEAN CELL VOLUME 93.9 fl (79.4-94.8); MEAN PLT VOLUME 9.5 fl (9.4-12.3); MONOCYTE # 1.39 x10^3/uL (0.24-0.86); MONOCYTE % 10.6 % (4.7-12.5); RDW 13.8 % (12.4-16.4)
[2025-02-21 07:23] LABS: GLUCOSE,RANDOM 151.0 mg/dL (74-106)
[2025-02-21 07:25] LABS: CO2 30.0 mmol/L (21-32)
[2025-02-21 07:29] LABS: CREATININE 0.72 mg/dL (0.55-1.3)
[2025-02-21] MEDS: INSULIN (NOVOLOG MIX 70/30) 100 UNITS/ML MDV SQ SCH ×2 (07:37→16:46)
[2025-02-22 07:21] LABS: ABSOLUTE IMMATURE GRANULOCYTES 0.08 x10^3/uL (0.0-0.031); BASOPHILS # 0.02 x10^3/uL (0.01-0.08); EOSINOPHIL % 0.2 % (0.7-5.8); EOSINOPHILS # 0.03 x10^3/uL (0.04-0.36); MCHC 30.1 g/dl (32.2-35.5); MEAN CELL VOLUME 94.6 fl (79.4-94.8); MEAN PLT VOLUME 9.1 fl (9.4-12.3); MONOCYTE # 1.17 x10^3/uL (0.24-0.86); MONOCYTE % 8.3 % (4.7-12.5); RDW 14.0 % (12.4-16.4)
[2025-02-22 07:32] LABS: GLUCOSE,RANDOM 150.0 mg/dL (74-106)
[2025-02-22 07:33] LABS: CO2 31.0 mmol/L (21-32)
[2025-02-22 07:37] LABS: CREATININE 0.84 mg/dL (0.55-1.3)
[2025-02-22] MEDS ORDERED: INSULIN ASPART SLIDING SCALE (NOVOLOG) 1 VIAL SQ ONE (19:15)
[2025-02-23] MEDS: INSULIN (NOVOLOG MIX 70/30) 100 UNITS/ML MDV SQ SCH ×2 (06:57→19:46)
[2025-02-23 08:46] LABS: ABSOLUTE IMMATURE GRANULOCYTES 0.11 x10^3/uL (0.0-0.031); BASOPHILS # 0.02 x10^3/uL (0.01-0.08); EOSINOPHIL % 0.1 % (0.7-5.8); EOSINOPHILS # 0.01 x10^3/uL (0.04-0.36); MCHC 30.3 g/dl (32.2-35.5); MEAN CELL VOLUME 93.9 fl (79.4-94.8); MEAN PLT VOLUME 9.3 fl (9.4-12.3); MONOCYTE # 0.46 x10^3/uL (0.24-0.86); MONOCYTE % 2.9 % (4.7-12.5); RDW 13.7 % (12.4-16.4)
[2025-02-23 09:20] LABS: GLUCOSE,RANDOM 139.0 mg/dL (74-106)
[2025-02-23 09:21] LABS: CO2 30.0 mmol/L (21-32)
[2025-02-23 09:25] LABS: CREATININE 0.72 mg/dL (0.55-1.3)
[2025-02-24 08:20] LABS: ABSOLUTE IMMATURE GRANULOCYTES 0.14 x10^3/uL (0.0-0.031); BASOPHILS # 0.05 x10^3/uL (0.01-0.08); EOSINOPHIL % 1.5 % (0.7-5.8); EOSINOPHILS # 0.25 x10^3/uL (0.04-0.36); MCHC 29.9 g/dl (32.2-35.5); MEAN CELL VOLUME 94.7 fl (79.4-94.8); MEAN PLT VOLUME 9.2 fl (9.4-12.3); MONOCYTE # 1.70 x10^3/uL (0.24-0.86); MONOCYTE % 10.1 % (4.7-12.5); RDW 13.8 % (12.4-16.4)
[2025-02-24 09:05] LABS: GLUCOSE,RANDOM 53.0 mg/dL (74-106)
[2025-02-24 09:07] LABS: CO2 32.0 mmol/L (21-32)
[2025-02-24 09:11] LABS: CREATININE 0.73 mg/dL (0.55-1.3)
[2025-02-24] MEDS: methylPREDNISolone NA SUCC 40 MG/1 ML VIAL IVPB SCH (10:13)
[2025-02-24] MEDS: INSULIN (NOVOLOG MIX 70/30) 100 UNITS/ML MDV SQ SCH ×3 (10:32→18:35)
[2025-02-24] MEDS: INSULIN (NOVOLOG MIX 70/30) 100 UNITS/ML MDV SQ ONE (11:12)
[2025-02-26 07:49] LABS: ABSOLUTE IMMATURE GRANULOCYTES 0.12 x10^3/uL (0.0-0.031); BASOPHILS # 0.04 x10^3/uL (0.01-0.08); EOSINOPHIL % 1.4 % (0.7-5.8); EOSINOPHILS # 0.23 x10^3/uL (0.04-0.36); MCHC 30.8 g/dl (32.2-35.5); MEAN CELL VOLUME 93.4 fl (79.4-94.8); MEAN PLT VOLUME 9.0 fl (9.4-12.3); MONOCYTE # 1.52 x10^3/uL (0.24-0.86); MONOCYTE % 9.4 % (4.7-12.5); RDW 13.6 % (12.4-16.4)
[2025-02-26 08:23] LABS: GLUCOSE,RANDOM 132.0 mg/dL (74-106)
[2025-02-26 08:25] LABS: CO2 32.0 mmol/L (21-32)
[2025-02-26 08:29] LABS: CREATININE 0.78 mg/dL (0.55-1.3)
[2025-02-27 07:06] VITALS: RESP 18
[2025-02-27] MEDS ORDERED: CEFUROXIME AXETIL 500 MG TABLET PO SCH (10:00)
[2025-02-27] MEDS: CEFUROXIME AXETIL 500 MG TABLET PO SCH (10:30)
[2025-02-27 13:47] VITALS: BP 142/66; PULSE 101; TEMP 98.5
== END 2025-02-27 17:58 | disposition home or self-care (01) | DRG 190 ==
LOC: JER 04:08 → JERBED 07:26 → OBSVTOIN 07:41 → J7W 09:05
PROVIDERS: ADMIT Internal Medicine; ATTEND Internal Medicine
DX: J44.0 Chronic obstructive pulmonary disease with (acute) lower respiratory infection (principal); I50.33 Acute on chronic diastolic (congestive) heart failure; J18.9 Pneumonia, unspecified organism; I10 Essential (primary) hypertension; E11.9 Type 2 diabetes mellitus without complications; J44.1 Chronic obstructive pulmonary disease with (acute) exacerbation; E83.42 Hypomagnesemia; E11.65 Type 2 diabetes mellitus with hyperglycemia; I16.0 Hypertensive urgency; K59.00 Constipation, unspecified
CPT/HCPCS: 36415; 71045-TC-FY; 80048; 80053; 81003; 82010; 82803; 82962; 83036; 83735; 83880; 84484; 85025; 85610; 85730; 86803; 87040; 87070; 87086; 87205; 87389; 87637-QW; 87899; 93005; 93010; 93306-TC; 93970-TC; 94010; 94640; 94761; 97116-GP; 97162-GP; 99285-25; G0378

== ENCOUNTER 2025-03-09 04:52 | Inpatient (IN) | payer OTHER ==
[2025-03-09] MEDS ORDERED: ALBUTEROL SO4 2.5/IPRATROPIUM 0.5 INH SOL 3 ML VIAL.NEB. NEB ONE (05:23)
[2025-03-09] MEDS: ALBUTEROL SO4 2.5/IPRATROPIUM 0.5 INH SOL 3 ML VIAL.NEB. NEB SCH ×2 (05:30→12:08)
[2025-03-09 06:04] LABS: BG HCT 26.0 % (32.4-45.2); VENOUS BASE EXCESS 1.8 mmol/L (-2-2); VENOUS O2 SATURATION 73.9 % (70-80); VENOUS PCO2 51.6 mmHg (38-52); VENOUS PH 7.35 (7.310-7.410)
[2025-03-09 06:18] LABS: ABSOLUTE IMMATURE GRANULOCYTES 0.05 x10^3/uL (0.0-0.031); BASOPHILS # 0.03 x10^3/uL (0.01-0.08); EOSINOPHIL % 0.7 % (0.7-5.8); EOSINOPHILS # 0.06 x10^3/uL (0.04-0.36); MCHC 31.3 g/dl (32.2-35.5); MEAN CELL VOLUME 92.9 fl (79.4-94.8); MEAN PLT VOLUME 9.8 fl (9.4-12.3); MONOCYTE # 0.51 x10^3/uL (0.24-0.86); MONOCYTE % 5.5 % (4.7-12.5); RDW 13.2 % (12.4-16.4)
[2025-03-09] MEDS ORDERED: FUROSEMIDE 40 MG/4 ML INJECTABLE VIAL ONE (06:19)
[2025-03-09] MEDS: FUROSEMIDE 40 MG/4 ML INJECTABLE VIAL IVPUSH ONE (06:24)
[2025-03-09 06:28] LABS: GLUCOSE,RANDOM 330.0 mg/dL (74-106); TOT PROT 5.8 g/dl (6.4-8.2)
[2025-03-09 06:29] LABS: CO2 22.0 mmol/L (21-32)
[2025-03-09 06:31] LABS: ALK PHOS 386.0 U/L (40-150)
[2025-03-09 06:33] LABS: SGPT/ALT 48.0 U/L (0-55)
[2025-03-09 06:34] LABS: CREATININE 0.68 mg/dL (0.55-1.3); SGOT/AST 46.0 U/L (5-34)
[2025-03-09 06:40] LABS: N-TERMINAL BNP 995.1 pg/mL (0-299.9)
[2025-03-09] MEDS ORDERED: FUROSEMIDE 40 MG/4 ML INJECTABLE VIAL IVPUSH SCH (10:00)
[2025-03-09] MEDS ORDERED: MAGNESIUM 2GM/50ML STERILE WATER IVPB IVPB ONE (10:38)
[2025-03-09] MEDS: INSULIN ASPART SLIDING SCALE (NOVOLOG) 1 VIAL SQ SCH (10:46)
[2025-03-09] MEDS: INSULIN (NOVOLOG MIX 70/30) 100 UNITS/ML MDV SQ ONE (10:46)
[2025-03-09] MEDS: ASPIRIN COATED 81 MG TABLET.EC PO SCH (10:47)
[2025-03-09] MEDS: DOCUSATE SODIUM 100 MG CAPSULE (FP) PO SCH (10:47)
[2025-03-09] MEDS: ENOXAPARIN NA (PORCINE) 40 MG/0.4 ML DISP.SYRIN SQ SCH (10:47)
[2025-03-09] MEDS: PANTOPRAZOLE 40 MG TABLET PO SCH (10:47)
[2025-03-09] MEDS: MAGNESIUM SULF 50% (8.12 MEQ/2 ML-1 GM VIAL) IVPB ONE (10:48)
[2025-03-09] MEDS: POLYETHYLENE GLYCOL (HEALTHYLAX) 3350 17 GM PACKET PO SCH (10:48)
[2025-03-09] MEDS ORDERED: POLYETHYLENE GLYCOL (HEALTHYLAX) 3350 17 GM PACKET ONE (10:53)
[2025-03-09] MEDS ORDERED: PANTOPRAZOLE 40 MG TABLET PO ONE (10:53)
[2025-03-09] MEDS ORDERED: ENOXAPARIN NA (PORCINE) 40 MG/0.4 ML DISP.SYRIN SQ ONE (10:54)
[2025-03-09] MEDS ORDERED: MAGNESIUM SULFATE IN WATER 2 GM/50 ML IVPB IVPB ONE (10:54)
[2025-03-09] MEDS ORDERED: DOCUSATE SODIUM 100 MG CAPSULE (FP) PO ONE (10:54)
[2025-03-09] MEDS ORDERED: INSULIN REGULAR HUMAN 100 UNITS/ML *VIAL ONE (10:56)
[2025-03-09] MEDS ORDERED: INSULIN (NOVOLOG MIX 70/30) 100 UNITS/ML MDV SQ ONE (10:56)
[2025-03-09 13:23] LABS: URINE APPEARANCE CLEAR; URINE BILIRUBIN NEGATIVE (NEGATIVE); URINE COLOR YELLOW; URINE GLUCOSE (UA) 3+ (NEGATIVE); URINE KETONE 1+ (NEGATIVE); URINE LEUK ESTERASE NEGATIVE (NEGATIVE); URINE NITRITE NEGATIVE (NEGATIVE); URINE PROTEIN 3+ (NEGATIVE); URINE UROBILINOGEN 0.2 mg/dL (0.2-1.0)
[2025-03-09] MEDS: BUDESONIDE/FORMETEROL FUMARATE 160/4.5 mcg INHALER IH SCH (15:29)
[2025-03-09] MEDS: INSULIN (NOVOLOG MIX 70/30) 100 UNITS/ML MDV SQ SCH (15:29)
[2025-03-09] MEDS: ATORVASTATIN CA 40 MG TABLET (FP) PO SCH (21:45)
[2025-03-10 06:23] LABS: ABSOLUTE IMMATURE GRANULOCYTES 0.08 x10^3/uL (0.0-0.031); BASOPHILS # 0.02 x10^3/uL (0.01-0.08); EOSINOPHIL % 0.0 % (0.7-5.8); EOSINOPHILS # 0.00 x10^3/uL (0.04-0.36); MCHC 31.1 g/dl (32.2-35.5); MEAN CELL VOLUME 92.4 fl (79.4-94.8); MEAN PLT VOLUME 9.6 fl (9.4-12.3); MONOCYTE # 1.45 x10^3/uL (0.24-0.86); MONOCYTE % 8.7 % (4.7-12.5); RDW 13.1 % (12.4-16.4)
[2025-03-10 06:28] LABS: GLUCOSE,RANDOM 378.0 mg/dL (74-106)
[2025-03-10 06:30] LABS: CO2 27.0 mmol/L (21-32)
[2025-03-10] MEDS: INSULIN (NOVOLOG MIX 70/30) 100 UNITS/ML MDV SQ SCH ×2 (06:33→08:28)
[2025-03-10 06:34] LABS: CREATININE 1.03 mg/dL (0.55-1.3)
[2025-03-10] MEDS ORDERED: INSULIN (NOVOLOG MIX 70/30) 100 UNITS/ML MDV SQ ONE (08:15)
[2025-03-10] MEDS: FUROSEMIDE 40 MG/4 ML INJECTABLE VIAL IVPUSH SCH (09:05)
[2025-03-11 06:38] LABS: ABSOLUTE IMMATURE GRANULOCYTES 0.06 x10^3/uL (0.0-0.031); BASOPHILS # 0.03 x10^3/uL (0.01-0.08); EOSINOPHIL % 1.9 % (0.7-5.8); EOSINOPHILS # 0.23 x10^3/uL (0.04-0.36); MCHC 30.3 g/dl (32.2-35.5); MEAN CELL VOLUME 92.2 fl (79.4-94.8); MEAN PLT VOLUME 9.4 fl (9.4-12.3); MONOCYTE # 0.93 x10^3/uL (0.24-0.86); MONOCYTE % 7.8 % (4.7-12.5); RDW 13.2 % (12.4-16.4)
[2025-03-11 07:09] LABS: GLUCOSE,RANDOM 223.0 mg/dL (74-106)
[2025-03-11 07:11] LABS: CO2 26.0 mmol/L (21-32)
[2025-03-11 07:15] LABS: CREATININE 0.83 mg/dL (0.55-1.3)
[2025-03-11] MEDS ORDERED: INSULIN (NOVOLOG MIX 70/30) 100 UNITS/ML MDV SQ SCH (07:21)
[2025-03-11] MEDS: FLU VACC TS2025-26(6MOS UP)/PF 45 MCG/0.5 ML SYRINGE IM ONE (10:53)
[2025-03-11] MEDS: MINERAL OIL ENEMA 133 ML ENEMA RC ONE (10:53)
[2025-03-11] MEDS: PNEUMOC 20-VAL CONJ-DIP CRM/PF 0.5 ML SYRINGE IM ONE (10:56)
[2025-03-11] MEDS: POLYETHYLENE GLYCOL (HEALTHYLAX) 3350 17 GM PACKET PO SCH (13:49)
[2025-03-11] MEDS: INSULIN (NOVOLOG MIX 70/30) 100 UNITS/ML MDV SQ SCH (16:51)
[2025-03-11] MEDS: FUROSEMIDE 40 MG/4 ML INJECTABLE VIAL IVPUSH SCH (21:03)
[2025-03-12 06:23] LABS: ABSOLUTE IMMATURE GRANULOCYTES 0.06 x10^3/uL (0.0-0.031); BASOPHILS # 0.02 x10^3/uL (0.01-0.08); EOSINOPHIL % 3.9 % (0.7-5.8); EOSINOPHILS # 0.37 x10^3/uL (0.04-0.36); MCHC 31.5 g/dl (32.2-35.5); MEAN CELL VOLUME 93.5 fl (79.4-94.8); MEAN PLT VOLUME 9.4 fl (9.4-12.3); MONOCYTE # 0.90 x10^3/uL (0.24-0.86); MONOCYTE % 9.5 % (4.7-12.5); RDW 13.3 % (12.4-16.4)
[2025-03-12 06:26] LABS: GLUCOSE,RANDOM 229.0 mg/dL (74-106)
[2025-03-12 06:27] LABS: CO2 32.0 mmol/L (21-32)
[2025-03-12 06:32] LABS: CREATININE 0.81 mg/dL (0.55-1.3)
[2025-03-12] MEDS: MAGNESIUM 2GM/50ML STERILE WATER IVPB IVPB ONE (07:51)
[2025-03-12] MEDS: POLYETHYLENE GLYCOL (HEALTHYLAX) 3350 17 GM PACKET PO SCH (09:24)
[2025-03-12] MEDS: INSULIN (NOVOLOG MIX 70/30) 100 UNITS/ML MDV SQ SCH (17:12)
[2025-03-13] MEDS: INSULIN (NOVOLOG MIX 70/30) 100 UNITS/ML MDV SQ SCH (06:16)
[2025-03-13] MEDS ORDERED: INSULIN (NOVOLOG MIX 70/30) 100 UNITS/ML MDV SQ ONE (06:20)
[2025-03-13 06:30] LABS: ABSOLUTE IMMATURE GRANULOCYTES 0.07 x10^3/uL (0.0-0.031); BASOPHILS # 0.05 x10^3/uL (0.01-0.08); EOSINOPHIL % 5.2 % (0.7-5.8); EOSINOPHILS # 0.48 x10^3/uL (0.04-0.36); MCHC 30.8 g/dl (32.2-35.5); MEAN CELL VOLUME 91.5 fl (79.4-94.8); MEAN PLT VOLUME 8.9 fl (9.4-12.3); MONOCYTE # 0.93 x10^3/uL (0.24-0.86); MONOCYTE % 10.0 % (4.7-12.5); RDW 13.2 % (12.4-16.4)
[2025-03-13 07:24] LABS: GLUCOSE,RANDOM 206.0 mg/dL (74-106)
[2025-03-13 07:25] LABS: CO2 34.0 mmol/L (21-32)
[2025-03-13 07:29] LABS: CREATININE 0.92 mg/dL (0.55-1.3); LDL CHOLESTEROL (ONLY SJRH) 109.0 mg/dL (5-100)
[2025-03-13] MEDS: FUROSEMIDE 40 MG/4 ML INJECTABLE VIAL IVPUSH SCH (09:25)
[2025-03-13] MEDS: MAGNESIUM 2GM/50ML STERILE WATER IVPB IVPB ONE (09:29)
[2025-03-14] MEDS: ACETAMINOPHEN 325 MG TABLET (FP) PO PRN (00:05)
[2025-03-14 06:57] LABS: ABSOLUTE IMMATURE GRANULOCYTES 0.13 x10^3/uL (0.0-0.031); BASOPHILS # 0.05 x10^3/uL (0.01-0.08); EOSINOPHIL % 5.4 % (0.7-5.8); EOSINOPHILS # 0.53 x10^3/uL (0.04-0.36); MCHC 30.6 g/dl (32.2-35.5); MEAN CELL VOLUME 91.9 fl (79.4-94.8); MEAN PLT VOLUME 8.9 fl (9.4-12.3); MONOCYTE # 1.17 x10^3/uL (0.24-0.86); MONOCYTE % 11.9 % (4.7-12.5); RDW 13.2 % (12.4-16.4)
[2025-03-14 07:14] LABS: GLUCOSE,RANDOM 187.0 mg/dL (74-106)
[2025-03-14 07:15] LABS: CO2 34.0 mmol/L (21-32)
[2025-03-14 07:20] LABS: CREATININE 0.93 mg/dL (0.55-1.3)
[2025-03-14] MEDS: BUMETANIDE 1 MG TABLET PO SCH ×2 (09:25→17:45)
[2025-03-15 06:32] LABS: ABSOLUTE IMMATURE GRANULOCYTES 0.13 x10^3/uL (0.0-0.031); BASOPHILS # 0.04 x10^3/uL (0.01-0.08); EOSINOPHIL % 4.5 % (0.7-5.8); EOSINOPHILS # 0.41 x10^3/uL (0.04-0.36); MCHC 31.3 g/dl (32.2-35.5); MEAN CELL VOLUME 92.1 fl (79.4-94.8); MEAN PLT VOLUME 9.0 fl (9.4-12.3); MONOCYTE # 1.33 x10^3/uL (0.24-0.86); MONOCYTE % 14.6 % (4.7-12.5); RDW 13.4 % (12.4-16.4)
[2025-03-15 06:55] LABS: GLUCOSE,RANDOM 183.0 mg/dL (74-106)
[2025-03-15 06:56] LABS: CO2 34.0 mmol/L (21-32)
[2025-03-15 07:01] LABS: CREATININE 1.18 mg/dL (0.55-1.3)
[2025-03-15] MEDS: BUMETANIDE 1 MG TABLET PO SCH (09:45)
[2025-03-15] MEDS: MAGNESIUM 2GM/50ML STERILE WATER IVPB IVPB ONE (09:47)
[2025-03-15] MEDS: INSULIN (NOVOLOG MIX 70/30) 100 UNITS/ML MDV SQ SCH (17:10)
[2025-03-15] MEDS: BUMETANIDE 0.5 MG TABLET PO SCH (17:27)
[2025-03-16 07:02] LABS: ABSOLUTE IMMATURE GRANULOCYTES 0.11 x10^3/uL (0.0-0.031); BASOPHILS # 0.04 x10^3/uL (0.01-0.08); EOSINOPHIL % 6.1 % (0.7-5.8); EOSINOPHILS # 0.53 x10^3/uL (0.04-0.36); MCHC 31.0 g/dl (32.2-35.5); MEAN CELL VOLUME 92.4 fl (79.4-94.8); MEAN PLT VOLUME 8.8 fl (9.4-12.3); MONOCYTE # 1.21 x10^3/uL (0.24-0.86); MONOCYTE % 14.0 % (4.7-12.5); RDW 13.4 % (12.4-16.4)
[2025-03-16 07:14] LABS: GLUCOSE,RANDOM 120.0 mg/dL (74-106)
[2025-03-16 07:15] LABS: CO2 33.0 mmol/L (21-32)
[2025-03-16 07:19] LABS: CREATININE 0.98 mg/dL (0.55-1.3)
[2025-03-16 14:46] VITALS: BMI 31.2
[2025-03-16 18:12] VITALS: TEMP 98.1
[2025-03-17 06:50] LABS: ABSOLUTE IMMATURE GRANULOCYTES 0.10 x10^3/uL (0.0-0.031); BASOPHILS # 0.06 x10^3/uL (0.01-0.08); EOSINOPHIL % 5.1 % (0.7-5.8); EOSINOPHILS # 0.50 x10^3/uL (0.04-0.36); MCHC 30.5 g/dl (32.2-35.5); MEAN CELL VOLUME 91.9 fl (79.4-94.8); MEAN PLT VOLUME 9.0 fl (9.4-12.3); MONOCYTE # 1.37 x10^3/uL (0.24-0.86); MONOCYTE % 14.1 % (4.7-12.5); RDW 13.3 % (12.4-16.4)
[2025-03-17 07:09] LABS: GLUCOSE,RANDOM 196.0 mg/dL (74-106)
[2025-03-17 07:10] LABS: CO2 28.0 mmol/L (21-32)
[2025-03-17 07:15] LABS: CREATININE 1.25 mg/dL (0.55-1.3)
[2025-03-17 08:24] VITALS: BP 122/104; PULSE 99; RESP 37
[2025-03-17] MEDS: SODIUM CHLORIDE NASAL SPRAY 44 ML BOTTLE NS PRN (10:13)
== END 2025-03-17 18:39 | disposition home or self-care (01) | DRG 291 ==
LOC: JER 04:52 → JERBED 06:39 → J2W 11:27
PROVIDERS: ADMIT Internal Medicine; ATTEND Internal Medicine
DX: I11.0 Hypertensive heart disease with heart failure (principal); I50.33 Acute on chronic diastolic (congestive) heart failure; I24.89 Other forms of acute ischemic heart disease; J44.9 Chronic obstructive pulmonary disease, unspecified; E11.9 Type 2 diabetes mellitus without complications; E78.5 Hyperlipidemia, unspecified
CPT/HCPCS: 36415; 71045-TC-FY; 80048; 80053; 80061; 81003; 82550; 82803; 82962; 83735; 83880; 84443; 84484; 85025; 87040; 87086; 87637-QW; 87899; 90656; 90677; 93005; 93010; 94010; 94640; 94660; 94761; 97116-GP; 97162-GP; 99285-25